=== PATIENT | male | born 1995 | race Two or more races ===

== ENCOUNTER 2024-02-11 12:42 | Inpatient (IN) ==
[2024-02-11 13:50] LABS: Basophils # (auto) 0.02 K/uL (0.00-0.20); Basophils % (auto) 0.3 %; Eosinophils # (auto) 0.03 K/uL (0.00-0.50); Eosinophils % (auto) 0.5 %; Hematocrit (blood only) 41.4 % (42.0-52.0); Hemoglobin 13.8 g/dl (14.0-18.0); Immature Granulocytes # (auto) 0.06 K/uL (0.01-0.20); Lymphocytes # (auto) 1.54 K/uL (1.20-3.40); Lymphocytes % (auto) 26.4 %; Mean Corpuscular Hemoglobin 32.1 pg (25.0-34.0); Mean Corpuscular Hgb Conc 33.3 g/dL (32.0-36.0); Mean Corpuscular Volume 96.3 fL (80.0-100.0); Mean Platelet Volume 9.8 fL (9.4-12.4); Monocytes % (auto) 13.7 %; Neutrophils # (auto) 3.38 K/uL (1.40-6.50); Neutrophils % (auto) 58.1 %; Platelet Count 402 K/uL (130-400); RDW Coefficient of Variation 15.2 % (11.5-14.5); RDW Standard Deviation 53.3 fL (36.4-46.3); White Blood Count 5.83 K/ul (4.8-10.8)
[2024-02-11 14:17] LABS: BUN Creatinine Ratio 22.4 (10-20); Calcium 9.8 mg/dl (8.6-10.3); Creatinine Clr Calc Pharmacy 98.9 ml/min; Est GFR (African American) 120.3 ml/min; Est GFR (Non-African American) 103.8 ml/min; Potassium 3.5 mmol/L (3.5-5.1)
[2024-02-11 14:22] LABS: Albumin Level 3.9 gm/dl (3.4-5.0); Bilirubin Direct 1.8 mg/dl (0-0.2); Bilirubin,Total 2.6 mg/dl (0.2-1.0); Total Protein 8.9 gm/dl (6.0-8.3)
[2024-02-11] MEDS: OPTIRAY 320 100ml IV ONE (15:21)
--- NOTE | 2024-02-11 15:41 | Ultrasound Report ---
US gallbladder CLINICAL HISTORY: RUQ abd pain; transaminitis COMPARISON STUDY: No previous studies for comparison. FINDINGS: There is no biliary ductal dilatation. There are no hepatic lesions. Multiple gallstones wi thin the gallbladder are present. Gallbladder wall is mildly thickened. The gallbladder is contracted . There is no sonographic Macario sign. Pancreas is obscured by overlying bowel gas. There is no right hydronephrosis. IMPRESSION: 1. Cholelithiasis. No sonographic evidence for acute cholecystitis. 2. No biliary ductal dilatation. ACT 112: Negative or not required by law. Electronically signed by: Cy Stevenson M.D. 02/11/2024 3:40 PM
--- NOTE | 2024-02-11 15:44 | CT Scan Report ---
CT SCAN OF THE ABDOMEN AND PELVIS WITH IV CONTRAST CLINICAL HISTORY: Right upper quadrant abdominal pain. Elevated hepatic transaminases COMPARISON STUDY: Abdominal ultrasound performed the same day 02/11/2024. TECHNIQUE: Following the IV administration of 94 cc of Optiray 320, CT scan of the abdomen and pelvi s is performed from the lung bases to the proximal femora. Images are reviewed in the axial, sagittal , and coronal planes. IV contrast was administered without complication. A dose lowering technique wa s utilized adhering to the principles of ALARA. CT DOSE: 569.12 mGy.cm FINDINGS: Lung bases: The heart is normal in size and without pericardial effusion. Tree in bud consolidation i s seen in the right middle lobe. The lung bases are otherwise clear. Liver: The contrast-enhanced liver is normal in size, contour, and attenuation. There is no intrahepa tic biliary ductal dilatation. The hepatic veins and portal veins are patent. Gallbladder: There are numerous calcified gallstones within a contracted gallbladder. There is no CT evidence of acute cholecystitis. Spleen: Normal in size and attenuation. Pancreas: Unremarkable. Adrenal glands: Unremarkable. Kidneys: The contrast enhanced kidneys are normal in size and without hydronephrosis. The kidneys enh ance symmetrically. An 8 mm cyst is seen in the right upper pole. Abdominal vasculature: The abdominal aorta is normal in course and caliber. Bowel: There is vehs-ip-excitytp colonic fecal retention. No bowel obstruction is seen. The appendix is not identified and reported surgically absent. Peritoneum: There is no intraperitoneal free air or abdominal ascites. There is a small fat-containin g umbilical hernia. Lymphadenopathy: There are prominent retroperitoneal lymph nodes. Aortocaval node nodes as seen on im ages #114 and #122 measure up to 9 mm in short axis. No additional suspicious lymph nodes are identif ied in the abdomen or pelvis. Pelvic viscera: The bladder, prostate, and seminal vesicles are normal as visualized. Skeletal structures: No lytic or blastic lesions are seen. IMPRESSION: 1. There is tree-in-bud airspace consolidation in the right middle lobe, likely an infectious/inflamm atory basis. Correlate clinically. 2. Cholelithiasis without CT evidence of acute cholecystitis. 3. There are prominent nonspecific retroperitoneal lymph nodes. Although not highly suspicious, given the location a testicular neoplasm should be excluded. Consider a scrotal ultrasound for further leah luation. 4. Additional findings as above. ACT 112: Negative or not required by law. Electronically signed by: Jacques Lunsford M.D. 02/11/2024 3:42 PM
[2024-02-11 15:55] LABS: Appearance Urine Clear (Clear); Bilirubin Urine 1+ (Negative); Blood Urine Negative (Negative); Color Urine Dark Yellow; Glucose Urine UA Negative (Negative); Ketones Urine Trace (Negative); Leukocyte Esterase Urine Negative (Negative); Nitrite Urine Negative (Negative); Protein Urine Negative (Negative); Specific Gravity Urine > 1.045 (1.000-1.030); Urobilinogen Urine Negative (Negative); pH Urine 5.5 (4.5-7.5)
--- NOTE | 2024-02-11 16:05 | Emergency Department Note ---
Impression & Plan Transaminitis ED Provider Note HISTORY OF PRESENT ILLNESS: Patient is a 28-year-old male presenting with transaminitis. Patient reports that he was getting basic laboratory workup done for an appointment to start a preventative medication (PREP) at [facility] when he was called today that his liver function tests were elevated. He had repeat testing done today again that showed his liver function tests were on the rise and was referred to the emergency department. Patient denies any recent changes in medications. He denies any abdominal pain, nausea or vomiting. Denies any recent fevers. Denies any headache or changes in vision. He denies any chest pain or shortness of breath. 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 He reports he has been in remission ever since. He follows with an oncologist in [place], but is currently in [place] for school. He states that his oncologist referred him to the emergency department for further testing. Patient does report that he tested positive for COVID 6 days ago. ROS: as above PHYSICAL EXAM: Constitutional: Patient appears in no acute distress. HENT: Head: Normocephalic and atraumatic. Eyes: EOMI, PERRL Mouth/Throat: Mucous membranes moist. Neck: Trachea midline. Neck supple. Cardiovascular: RRR, No murmurs, rubs or gallops. Intact distal pulses. Pulmonary/Chest: No respiratory distress. Breath sounds clear and equal bilaterally. No wheezes or rales. Abdominal: Abdomen soft, no tenderness, rebound or guarding. Musculoskeletal: No edema, tenderness or deformity noted. Skin: Warm and dry. No rash, erythema, pallor or cyanosis Psychiatric: Appropriate mood and affect for situation. Neurological: Alert and keenly responsive. CN II-XII grossly intact, moving all extremities equally and fully. MDM: - Vitals signs stable. - History obtained via patient. History as above. - Chronic conditions affecting care: Leukemia - Differential diagnoses include, but are not limited to: Cholelithiasis; choledocholithiasis; acute cholecystitis; acute viral syndrome; - Order placed for continuous cardiac monitoring. At this time, monitor showed rate of 65 bpm with normal sinus rhythm, per my interpretation. - External medical records reviewed. - Laboratory workup interpreted by myself showed normal WBC; normal PT/INR; normal procalcitonin; stable electrolytes; elevated total bilirubin (2.6); transaminitis (AST 546; ALT 759); elevated alkaline phosphatas (379); normal CK; normal lipase; negative alcohol; negative acetaminophen level; negative Monospot - Negative Lyme/anaplasma/babesia - Acute hepatitis panel ordered. - UA negative for infection. Noted to have trace ketonuria and positive urine bilirubin. - US gallbladder showed cholelithiasis but no sonographic evidence of acute cholecystitis. No biliary ductal dilatation. - CT abdomen/pelvis with IV contrast showed cholelithiasis without acute cholecystitis. Noted to have prominent nonspecific retroperitoneal lymph nodes. - Did discuss patient's case with his oncologist at [facility], Dr Lisa Stevenson, at 16:05. He reports that the patient has a history of bone marrow transplant and reports that one of the complications from that is potentially adhye-tzqrww-egho disease of the liver. He request that we rule out hepatitis and any other infectious etiology. He reports that once infection has been ruled out, the patient should be started on steroids. - Discussion was had with case planner about patient's case and need for admission - Hospitalist, Dr. Andrews, consulted for admission - [facility] ASSESSMENT AND PLAN: Diagnosis: Transaminitis Plan: admit Past Med/Surg History Problem List (Updated 02/11/24 @ 17:38 by Tru Piedra PA-C) COVID History of acute lymphoblastic leukemia (ALL) Transaminitis (Acute) Social History Smoking Status: Current some day smoker Tobacco Type: Cigarettes Preferred Language: Cuban Feels Safe at Home: Yes Allergies Allergies Allergy/AdvReac Type Severity Reaction Status Date / Time No Known Allergies Allergy Unverified 02/11/24 17:03 Home Meds Home Medications Medication Instructions Recorded Confirmed Vitamin B6 50 mcg PO DAILY 02/11/24 02/11/24 acyclovir 1 tab PO BID 02/11/24 02/11/24 deferasirox 360 mg tablet 350 mg PO UD 02/11/24 02/11/24 dextroamphetamine-amphetamine 15 15 mg PO .Q AM AND BEFORE 2PM 02/11/24 02/11/24 mg tablet (Adderall) isoniazid 300 mg tablet 300 mg PO DAILY 02/11/24 02/11/24 multivitamin 1 tab PO QAM 02/11/24 02/11/24 penicillin V potassium 250 mg 250 mg PO BID 02/11/24 02/11/24 tablet Results & Data (ED) Vital Signs Vital Signs - 24 hr 02/11/24 12:54 02/11/24 16:59 Temperature 36.6 C Temperature Source Temporal Artery Scan Pulse Rate 87 Pulse Rate [Apical] 66 Respiratory Rate 20 12 Respiratory Effort / Characteristics Non-Labored Spontaneous Respiratory Depth Normal Respiratory Pattern Regular Blood Pressure 105/73 Blood Pressure [Right Arm] 116/67 Blood Pressure Mean 83 Blood Pressure Mean [Right Arm] 83 Blood Pressure Position Sitting Pulse Oximetry 96 99 Oxygen Delivery Method Room Air Room Air Sepsis Recent Fever Within 48 Hours No Sepsis New/Unexplained Change in Mental Status No Sepsis Action Taken by Nursing No Action Required Laboratory Data 02/11/24 13:08 02/11/24 13:08 Lab Results 02/11/24 02/11/24 02/11/24 Range/Units 13:08 13:48 15:35 WBC 5.83 (4.8-10.8) K/ul RBC 4.30 L (4.70-6.10) M/uL Hgb 13.8 L (14.0-18.0) g/dl Hct 41.4 L (42.0-52.0) % MCV 96.3 (80.0-100.0) fL MCH 32.1 (25.0-34.0) pg MCHC 33.3 (32.0-36.0) g/dL RDW Std Deviation 53.3 H (36.4-46.3) fL RDW Coeff of Apple 15.2 H (11.5-14.5) % Plt Count 402 H (130-400) K/uL MPV 9.8 (9.4-12.4) fL Immature Gran % (Auto) 1.0 % Neut % (Auto) 58.1 % Lymph % (Auto) 26.4 % [place] % (Auto) 13.7 % Eos % (Auto) 0.5 % Baso % (Auto) 0.3 % Neut # (Auto) 3.38 (1.40-6.50) K/uL Lymph # (Auto) 1.54 (1.20-3.40) K/uL [place] # (Auto) 0.80 H (0.11-0.59) K/uL Eos # (Auto) 0.03 (0.00-0.50) K/uL Baso # (Auto) 0.02 (0.00-0.20) K/uL Immature Gran # (Auto) 0.06 (0.01-0.20) K/uL PT (9.0-12.0) Seconds INR (0.9-1.1) Sodium 137 (136-145) mmol/L Potassium 3.5 (3.5-5.1) mmol/L Chloride 100 (98-107) mmol/L Carbon Dioxide 30 (21-32) mmol/L Anion Gap 7 (3-11) BUN 22 (6-23) mg/dl Creatinine 0.98 (0.6-1.4) mg/dl Est Cr Clr Drug Dosing 98.9 ml/min Est GFR ( Amer) 120.3 ml/min Est GFR (Non-Af Amer) 103.8 ml/min BUN/Creatinine Ratio 22.4 H (10-20) Glucose 111 H (70-99(Fasting)) mg/dl Calcium 9.8 (8.6-10.3) mg/dl Total Bilirubin 2.6 H (0.2-1.0) mg/dl Direct Bilirubin 1.8 H (0-0.2) mg/dl AST 546 H (13-39) U/L ALT 759 H (7-52) U/L Alkaline Phosphatase 379 H (34-104) U/L Total Creatine Kinase 57 (30-223) U/L Total Protein 8.9 H (6.0-8.3) gm/dl Albumin 3.9 (3.4-5.0) gm/dl Lipase 35 (11-82) U/L Procalcitonin (0-0.5) ng/ml Urine Color Dark Yellow Urine Appearance Clear (Clear) Urine pH 5.5 (4.5-7.5) Ur Specific [place] > 1.045 H (1.000-1.030) Urine Protein Negative (Negative) Urine Glucose (UA) Negative (Negative) Urine Ketones Trace H (Negative) Urine Blood Negative (Negative) Urine Nitrite Negative (Negative) Urine Bilirubin 1+ H (Negative) Urine Urobilinogen Negative (Negative) Ur Leukocyte Esterase Negative (Negative) Acetaminophen < 3 L (10-30) ug/ml Ethyl Alcohol mg/dL (<10.0) mg/dl Anaplasma Smear See Comment Babesia Smear See Comment Lyme Disease Screen Negative (Negative) Monoscreen Negative (Negative) SARS-CoV-2, RNA, NAAT (NEGATIVE) 02/11/24 02/11/24 02/11/24 Range/Units 15:40 16:29 17:18 WBC (4.8-10.8) K/ul RBC (4.70-6.10) M/uL Hgb (14.0-18.0) g/dl Hct (42.0-52.0) % MCV (80.0-100.0) fL MCH (25.0-34.0) pg MCHC (32.0-36.0) g/dL RDW Std Deviation (36.4-46.3) fL RDW Coeff of Apple (11.5-14.5) % Plt Count (130-400) K/uL MPV (9.4-12.4) fL Immature Gran % (Auto) % Neut % (Auto) % Lymph % (Auto) % [place] % (Auto) % Eos % (Auto) % Baso % (Auto) % Neut # (Auto) (1.40-6.50) K/uL Lymph # (Auto) (1.20-3.40) K/uL [place] # (Auto) (0.11-0.59) K/uL Eos # (Auto) (0.00-0.50) K/uL Baso # (Auto) (0.00-0.20) K/uL Immature Gran # (Auto) (0.01-0.20) K/uL PT 10.9 (9.0-12.0) Seconds INR 1.0 (0.9-1.1) Sodium (136-145) mmol/L Potassium (3.5-5.1) mmol/L Chloride (98-107) mmol/L Carbon Dioxide (21-32) mmol/L Anion Gap (3-11) BUN (6-23) mg/dl Creatinine (0.6-1.4) mg/dl Est Cr Clr Drug Dosing ml/min Est GFR ( Amer) ml/min Est GFR (Non-Af Amer) ml/min BUN/Creatinine Ratio (10-20) Glucose (70-99(Fasting)) mg/dl Calcium (8.6-10.3) mg/dl Total Bilirubin (0.2-1.0) mg/dl Direct Bilirubin (0-0.2) mg/dl AST (13-39) U/L ALT (7-52) U/L Alkaline Phosphatase (34-104) U/L Total Creatine Kinase (30-223) U/L Total Protein (6.0-8.3) gm/dl Albumin (3.4-5.0) gm/dl Lipase (11-82) U/L Procalcitonin 0.21 (0-0.5) ng/ml Urine Color Urine Appearance (Clear) Urine pH (4.5-7.5) Ur Specific [place] (1.000-1.030) Urine Protein (Negative) Urine Glucose (UA) (Negative) Urine Ketones (Negative) Urine Blood (Negative) Urine Nitrite (Negative) Urine Bilirubin (Negative) Urine Urobilinogen (Negative) Ur Leukocyte Esterase (Negative) Acetaminophen (10-30) ug/ml Ethyl Alcohol mg/dL < 10.0 (<10.0) mg/dl Anaplasma Smear Babesia Smear Lyme Disease Screen (Negative) Monoscreen (Negative) SARS-CoV-2, RNA, NAAT POSITIVE A (NEGATIVE) Administered Medications Discontinued Medications Ioversol (Optiray 320 100ml) 94 ml IV ONCE ONE Stop: 02/11/24 15:22 Last Admin: 02/11/24 15:21 Dose: 94 ml Documented By: MAYELA Imaging Data Radiologist's Impression: Gallbladder Ultrasound 02/11/24 13:55 US gallbladder CLINICAL HISTORY: RUQ abd pain; transaminitis COMPARISON STUDY: No previous studies for comparison. FINDINGS: There is no biliary ductal dilatation. There are no hepatic lesions. Multiple gallstones within the gallbladder are present. Gallbladder wall is mildly thickened. The gallbladder is contracted. There is no sonographic Macario sign. Pancreas is obscured by overlying bowel gas. There is no right hydronephrosis. IMPRESSION: 1. Cholelithiasis. No sonographic evidence for acute cholecystitis. 2. No biliary ductal dilatation. ACT 112: Negative or not required by law. Electronically signed by: Cy Stevenson M.D. 02/11/2024 3:40 PM Abdomen/Pelvis CT 02/11/24 14:55 CT SCAN OF THE ABDOMEN AND PELVIS WITH IV CONTRAST CLINICAL HISTORY: Right upper quadrant abdominal pain. Elevated hepatic transaminases COMPARISON STUDY: Abdominal ultrasound performed the same day 02/11/2024. TECHNIQUE: Following the IV administration of 94 cc of Optiray 320, CT scan of the abdomen and pelvis is performed from the lung bases to the proximal femora. Images are reviewed in the axial, sagittal, and coronal planes. IV contrast was administered without complication. A dose lowering technique was utilized adhering to the principles of ALARA. CT DOSE: 569.12 mGy.cm FINDINGS: Lung bases: The heart is normal in size and without pericardial effusion. Tree in bud consolidation is seen in the right middle lobe. The lung bases are otherwise clear. Liver: The contrast-enhanced liver is normal in size, contour, and attenuation. There is no intrahepatic biliary ductal dilatation. The hepatic veins and portal veins are patent. Gallbladder: There are numerous calcified gallstones within a contracted gallbladder. There is no CT evidence of acute cholecystitis. Spleen: Normal in size and attenuation. Pancreas: Unremarkable. Adrenal glands: Unremarkable. Kidneys: The contrast enhanced kidneys are normal in size and without hydronephrosis. The kidneys enhance symmetrically. An 8 mm cyst is seen in the right upper pole. Abdominal vasculature: The abdominal aorta is normal in course and caliber. Bowel: There is haoq-zf-zazuqmfk colonic fecal retention. No bowel obstruction is seen. The appendix is not identified and reported surgically absent. Peritoneum: There is no intraperitoneal free air or abdominal ascites. There is a small fat-containing umbilical hernia. Lymphadenopathy: There are prominent retroperitoneal lymph nodes. Aortocaval node nodes as seen on images #114 and #122 measure up to 9 mm in short axis. No additional suspicious lymph nodes are identified in the abdomen or pelvis. Pelvic viscera: The bladder, prostate, and seminal vesicles are normal as visualized. Skeletal structures: No lytic or blastic lesions are seen. IMPRESSION: 1. There is tree-in-bud airspace consolidation in the right middle lobe, likely an infectious/inflammatory basis. Correlate clinically. 2. Cholelithiasis without CT evidence of acute cholecystitis. 3. There are prominent nonspecific retroperitoneal lymph nodes. Although not highly suspicious, given the location a testicular neoplasm should be excluded. Consider a scrotal ultrasound for further evaluation. 4. Additional findings as above. ACT 112: Negative or not required by law. Electronically signed by: Jacques Lunsford M.D. 02/11/2024 3:42 PM Discharge Plan Visit Data Chief Complaint: Abnormal Labs/Diagnostic Testing Stated Complaint: ABN LABS, REF BY [facility] ED Provider: Xi Sahni Discharge Problem: Transaminitis Forms Stand Alone Forms: My [facility] Prescriptions Prescriptions: No Action multivitamin [Multi-Vitamin] Tablet 1 tab PO QAM Rx Instructions: gummies penicillin V potassium 250 mg Tablet 250 mg PO BID isoniazid 300 mg Tablet 300 mg PO DAILY dextroamphetamine-amphetamine [Adderall] 15 mg Tablet 15 mg PO .Q AM AND BEFORE 2PM Rx Instructions: administer doses at least 4-6 hours apart deferasirox 360 mg Tablet 350 mg PO UD Rx Instructions: Per pt his dose is 350 mg and he takes 700 mg (350 x2) in the mornings take with water/beverage on empty stomach/w light meal (<7 % fat/<=250 any); do not take within 1 hr of an aluminum-containing antacid Vitamin B6 50 mcg PO DAILY acyclovir 1 tab PO BID Rx Instructions: dosage wasn't showing up for patient and he was unsure. Referrals [facility] [Primary [facility] Provider[facility] -
--- NOTE | 2024-02-11 16:25 | History & Physical Report ---
Date of Service February 11, 2024 Assessment & Plan (1) Transaminitis: Plan: Sent in by [facility] for elevated LFTs on 02/10 Lipase WNL No leukocytosis; afebrile Gallbladder ultrasound without signs of acute cholecystitis A/P CT did not reveal acute cholecystitis, but noted prominent nonspecific lymph nodes; testicular neoplasm could not be excluded Scrotal U/S ordered, pending ETOH WNL Acetaminophen level WNL Procalcitonin WNL Monospot negative Hepatitis panel ordered, pending Tickborne panel ordered, pending Suspect this is multifactorial: Combination of recent COVID infection leading to Tylenol use, recent alcohol use on 02/08 (5 beers), and home medications (which includes isoniazid; ?enhancement of acetaminophen toxicity) Patient reports he was on isoniazid for "something to do with his lung" Last Tylenol was taken yesterday A.m. 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 Lisa Stevenson) In remission x 3 years ? Transaminitis as a side effect of transplant; [id number] If this were the case, could trial steroids Continue Pen VK 500mg daily Continue acyclovir 400 mg BID Hold Isoniazid (3) COVID: Plan: Patient reports he recently tested positive for COVID last week on 02/04 COVID (+) on arrival Isolation precautions for now Supportive care (4) Insomnia: Plan: Hold gabapentin Melatonin as needed Plan Disposition: Admit to [facility] Full code Regular diet VTE PPx: Low risk, encourage ambulation History of Present Illness Chief Complaint: Abnormal liver function tests on outpatient labs Primary Care Provider: [facility] Edi is a pleasant 28-year-old male with PMH of B-cell ALL, secondary hemochromatosis, insomnia, neutropenic fever, CMV gastritis, and recurrent infections (group B strep bacteremia, human metapneumovirus). He presented on 02/10 after having blood work obtained at [facility] that showed elevated liver enzyme levels. 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 Follows with [facility] hematology/oncology. Patient does report abdominal bloating, headache, and dry cough, but no other symptoms. He recently moved from [place] to attend [employer] for a PhD in philosophy. He does report that he tested positive for COVID last week on 02/04 and has been trying to quarantine. While his symptoms have largely subsided, he reports he was taking Tylenol and cough syrup over the past week. He would take 2 Tylenol 500 mg in the morning, as well as cough syrup at night (and occasionally an additional Tylenol tablet at night for body aches). He also reports that he was drinking alcohol on 02/08; he had about 5 beers at a [employer]. No history of acute hepatitis. He denies history of heavy alcohol use. His body aches and most of his COVID symptoms have resolved, but he does have ongoing dry cough, headache, and abdominal bloating. No recent change in diet. Occasional tobacco cigarette smoker (socially). Patient did not take his regular morning medications today; he does take isoniazid, but is unsure why he takes it (believes it was for a lung condition; he does not believe it was for history of DVT). Patient's vitals are stable at time of admission. ED course: ROS: Patient endorses intermittent headache, dry cough, and abdominal bloating. Patient denies fever, chills, night sweats, dizziness, lightheadedness, joint pain, chest pain, chest palpitations, SOB, cough, pleuritic CP, abdominal pain, N/V/D, changes in urinary or bowel habits, melena, blood in the urine or stool, or numbness or tingling in the arms or legs. Allergies Allergy/AdvReac Type Severity Reaction Status Date / Time No Known Allergies Allergy Unverified 02/11/24 17:03 Home Medications Medication Instructions Recorded Confirmed Type Vitamin B6 50 mcg PO DAILY 02/11/24 02/11/24 History acyclovir 1 tab PO BID 02/11/24 02/11/24 History deferasirox 360 mg tablet 350 mg PO UD 02/11/24 02/11/24 History dextroamphetamine-amphetamine 15 15 mg PO .Q AM AND BEFORE 2PM 02/11/24 02/11/24 History mg tablet (Adderall) isoniazid 300 mg tablet 300 mg PO DAILY 02/11/24 02/11/24 History multivitamin 1 tab PO QAM 02/11/24 02/11/24 History penicillin V potassium 250 mg 250 mg PO BID 02/11/24 02/11/24 History tablet Past Med/Surg History Problem List (Updated 02/11/24 @ 18:13 by Tru Piedra PA-C) Insomnia COVID History of acute lymphoblastic leukemia (ALL) Transaminitis (Acute) Social History Smoking Status: Current some day smoker Tobacco Type: Cigarettes Preferred Language: Turkmen Feels Safe at Home: Yes Review of Systems Review of Systems: See HPI above Physical Exam Physical Exam: General: no acute distress; pleasant affect; anxious; non-toxic appearing; well- nourished; cooperative; SpO2 96% on RA HEENT: normocephalic, atraumatic; no scleral icterus; PERRLA w/ EOMs intact; vision and hearing grossly intact Neck: supple; no lymphadenopathy; trachea midline Skin: warm, dry without signs of tenting; no cyanosis; no rashes, bruising, lesions, or erythema noted CV: chest wall NTP; RRR; S1/S2 normal; no murmurs/rubs/gallops; pulses intact and symmetric at radial, DP, and PT Lungs: no acute respiratory distress; symmetrical chest wall expansion; clear breath sounds across all lung argueta w/o adventitious sounds; no wheezing ABD: Soft, NTP; BS present; no rebound/guarding; no distention; no rashes or bruising on the abdomen or flanks bilaterally MSK: no tics or fasciculations; no edema noted in the LEs b/l, nonerythematous Neuro: A&Ox3; normal mood and affect; fluent speech; no focal deficits; sensation grossly intact in the LEs b/l Results & Data Results & Data Vital Signs (Past 12 Hours) Vital Signs Temp Pulse Resp BP Pulse Ox O2 Del Method 02/11/24 12:54 36.6 C 87 20 105/73 96 Room Air Laboratory Results Abnormal lab results 02/11/24 02/11/24 02/11/24 Range/Units 13:08 13:48 15:35 RBC 4.30 L (4.70-6.10) M/uL Hgb 13.8 L (14.0-18.0) g/dl Hct 41.4 L (42.0-52.0) % RDW Std Deviation 53.3 H (36.4-46.3) fL RDW Coeff of Apple 15.2 H (11.5-14.5) % Plt Count 402 H (130-400) K/uL [place] # (Auto) 0.80 H (0.11-0.59) K/uL BUN/Creatinine Ratio 22.4 H (10-20) Glucose 111 H (70-99(Fasting)) mg/dl Total Bilirubin 2.6 H (0.2-1.0) mg/dl Direct Bilirubin 1.8 H (0-0.2) mg/dl AST 546 H (13-39) U/L ALT 759 H (7-52) U/L Alkaline Phosphatase 379 H (34-104) U/L Total Protein 8.9 H (6.0-8.3) gm/dl Ur Specific [place] > 1.045 H (1.000-1.030) Urine Ketones Trace H (Negative) Urine Bilirubin 1+ H (Negative) Acetaminophen < 3 L (10-30) ug/ml Diagnostic Findings Gallbladder Ultrasound 02/11/24 13:55 US gallbladder CLINICAL HISTORY: RUQ abd pain; transaminitis COMPARISON STUDY: No previous studies for comparison. FINDINGS: There is no biliary ductal dilatation. There are no hepatic lesions. Multiple gallstones within the gallbladder are present. Gallbladder wall is mildly thickened. The gallbladder is contracted. There is no sonographic Macario sign. Pancreas is obscured by overlying bowel gas. There is no right hydronephrosis. IMPRESSION: 1. Cholelithiasis. No sonographic evidence for acute cholecystitis. 2. No biliary ductal dilatation. ACT 112: Negative or not required by law. Electronically signed by: Cy Stevenson M.D. 02/11/2024 3:40 PM Abdomen/Pelvis CT 02/11/24 14:55 CT SCAN OF THE ABDOMEN AND PELVIS WITH IV CONTRAST CLINICAL HISTORY: Right upper quadrant abdominal pain. Elevated hepatic transaminases COMPARISON STUDY: Abdominal ultrasound performed the same day 02/11/2024. TECHNIQUE: Following the IV administration of 94 cc of Optiray 320, CT scan of the abdomen and pelvis is performed from the lung bases to the proximal femora. Images are reviewed in the axial, sagittal, and coronal planes. IV contrast was administered without complication. A dose lowering technique was utilized adhering to the principles of ALARA. CT DOSE: 569.12 mGy.cm FINDINGS: Lung bases: The heart is normal in size and without pericardial effusion. Tree in bud consolidation is seen in the right middle lobe. The lung bases are otherwise clear. Liver: The contrast-enhanced liver is normal in size, contour, and attenuation. There is no intrahepatic biliary ductal dilatation. The hepatic veins and portal veins are patent. Gallbladder: There are numerous calcified gallstones within a contracted gallbladder. There is no CT evidence of acute cholecystitis. Spleen: Normal in size and attenuation. Pancreas: Unremarkable. Adrenal glands: Unremarkable. Kidneys: The contrast enhanced kidneys are normal in size and without hydronephrosis. The kidneys enhance symmetrically. An 8 mm cyst is seen in the right upper pole. Abdominal vasculature: The abdominal aorta is normal in course and caliber. Bowel: There is aczc-lg-jqeuranl colonic fecal retention. No bowel obstruction is seen. The appendix is not identified and reported surgically absent. Peritoneum: There is no intraperitoneal free air or abdominal ascites. There is a small fat-containing umbilical hernia. Lymphadenopathy: There are prominent retroperitoneal lymph nodes. Aortocaval node nodes as seen on images #114 and #122 measure up to 9 mm in short axis. No additional suspicious lymph nodes are identified in the abdomen or pelvis. Pelvic viscera: The bladder, prostate, and seminal vesicles are normal as visualized. Skeletal structures: No lytic or blastic lesions are seen. IMPRESSION: 1. There is tree-in-bud airspace consolidation in the right middle lobe, likely an infectious/inflammatory basis. Correlate clinically. 2. Cholelithiasis without CT evidence of acute cholecystitis. 3. There are prominent nonspecific retroperitoneal lymph nodes. Although not highly suspicious, given the location a testicular neoplasm should be excluded. Consider a scrotal ultrasound for further evaluation. 4. Additional findings as above. ACT 112: Negative or not required by law. Electronically signed by: Jacques Lunsford M.D. 02/11/2024 3:42 PM Code Status & VTE Plan Code Status Full code VTE Prophylaxis Plan VTE Prophylaxis will be ordered: No Supervising Physician Co-Signing Physician Notes Patient seen and examined, chart reviewed, case discussed with Tru Piedra PA-C and I agree with the assessment and plan as above except as otherwise noted Labs and images reviewed Edi is a 28yo M with PMHx of ALL who presented after outpatient blood work s howed transaminitis. Hx of bone marrow transplant COVID+ Feb 04. Has been taking tylenol 2-3x tablets per day for the last 6 days. 500 mg tablets around every 6-8 hours last dose was yesterday evening Drank 5 beers at a mixer this past week, otherwise denies hx of etoh use. This was the before his symptoms began, he did not drink any alcohol at the same time he is using Tylenol COVID symptoms have resolved On acyclovir, isoniazid, PCN, gabpentin chronically Does have history of AL L s/p bone marrow allograft at [facility] Has had some complicated infections in the past. Denies history of tuberculosis, but is also not sure why he is on isoniazid. Records are pending. Did discuss with patient's oncologist Dr. Stevenson at [phone]. I level of suspicion for xkffy-lwohbi-majn which can be induced by potential priming of COVID infection. Agreed with hepatitis panel, and if negative then starting on prednisone 60 mg daily for at least 1 week or until transaminases are improving. Did review CT with retroperitoneal lymphadenopathy and testicular mass, highly concerning for recurrent malignancy. Is not clear on the details at time of call on his isoniazid, but will obtain records from [facility] and fax these to us at the ER office. Recommending holding at this time given transaminitis. Appreciate recommendations Scrotal ultrasound is pending, and may need to progress to testicular biopsy for further evaluation. At bedside lungs are clear. Patient is nondistressed. Abdomen is soft and nontender. No lower extremity edema. Heart rate is regular. Transaminitis Patient admitted for transaminitis, and was recommended for inpatient evaluation by his OSH oncologist due to history of bone marrow transplant due to risk of other infections and jfdjx-qasfcq-ouae. Recommended if no infectious etiology were identified and if there is no improvement that steroids be pursued Patient recently had COVID. In addition to this he has been taking Tylenol, may have been potentiated while also on isoniazid. CTA/P does not show evidence of obstruction, cholelithiasis are noted. Some right lobe consolidation is noted. Acetaminophen level is negative at time of admission. Last dose was 1 day ago. ETOH is negative at time of admission. NAC is not indicated Trend LFTs daily, hold isoniazid, if hepatitis panel is negative start prednisone 60 mg daily COVID - Dx by home test 1 week ago. Patient has not had fevers or chills, his respiratory symptoms have completely resolved from COVID, does not have a leukocytosis. CT with some right lung findings, will monitor. His procalcitonin is pending. Patient has been put on Bactrim 3 times daily at the rest of his oncology team and will continue his penicillin V. Currently not hypoxic, afebrile. Isolation precautions Scrotal mass, retroperitoneal lymphadenopathy Concerning her recurrent malignancy. Scrotal ultrasound pending Agree with above PG Care Time/CCT Total # of Minutes Spent Total Time Spent with Patient: Total time spent is greater than 50% in coordination of care (as documented) at patient's floor/unit and/or counseling patient: [place] [address] INT INP/OBS CARE 3/75MIN Patient Type New Medical Decision Making High Complexity Diagnoses Transaminitis R74.01 History of acute lymphoblastic leukemia (ALL) Z85.6 COVID U07.1 Insomnia G47.00
[2024-02-11 17:24] LABS: Prothrombin Time 10.9 Seconds (9.0-12.0)
[2024-02-11 17:44] LABS: Hep B Surface Ag with confirm Negative (Negative)
[2024-02-11 17:49] LABS: Hep C Ab Rflx HepCQuant RNA Negative (Negative)
[2024-02-11] MEDS: PENICILLIN V POTASSIUM 250 MG TAB PO SCH (21:04)
[2024-02-11] MEDS: ACYCLOVIR 400 MG TAB PO SCH (21:04)
--- NOTE | 2024-02-11 23:44 | Ultrasound Report ---
Exam(s): US SCROTAL EXAM: US Scrotum CLINICAL HISTORY: Reason for exam: Retroperitoneal lymph nodes; r/o neoplasm. TECHNIQUE: Real-time ultrasound of the scrotum with color Doppler and image documentation. COMPARISON: CT scan from February 11, 2024 FINDINGS: Right testicle: The right testicle measures 2.4 x 3.9 x 1.6 cm. No torsion. Left testicle: The left testicle measures 2.3 x 3.6 x 1.7 cm. No torsion. Epididymides: The right epididymal head measures 7 x 5 mm. The left epididymal head measures 9 x 5 mm. Scrotum: There is scrotal skin thickening measuring 10 mm diffusely. No hernia or varicocele. IMPRESSION: Scrotal skin thickening is nonspecific but could represent cellulitis. Normal appearance of the testicles and epididymides. No mass, torsion, hernia, or varicocele. Electronically signed by: Vikram Gotti MD 02/11/24 23:43 PM
[2024-02-12] MEDS: MELATONIN 3 MG TAB PO PRN (01:23)
[2024-02-12 06:17] LABS: Basophils # (auto) 0.01 K/uL (0.00-0.20); Basophils % (auto) 0.2 %; Eosinophils # (auto) 0.04 K/uL (0.00-0.50); Eosinophils % (auto) 0.8 %; Hematocrit (blood only) 36.7 % (42.0-52.0); Hemoglobin 12.7 g/dl (14.0-18.0); Immature Granulocytes # (auto) 0.03 K/uL (0.01-0.20); Immature Granulocytes % (auto) 0.6 %; Lymphocytes # (auto) 1.41 K/uL (1.20-3.40); Mean Corpuscular Hemoglobin 32.3 pg (25.0-34.0); Mean Corpuscular Hgb Conc 34.6 g/dL (32.0-36.0); Mean Corpuscular Volume 93.4 fL (80.0-100.0); Mean Platelet Volume 9.8 fL (9.4-12.4); Monocytes # (auto) 0.91 K/uL (0.11-0.59); Monocytes % (auto) 18.1 %; Neutrophils # (auto) 2.64 K/uL (1.40-6.50); Neutrophils % (auto) 52.3 %; Platelet Count 346 K/uL (130-400); RDW Coefficient of Variation 15.1 % (11.5-14.5); RDW Standard Deviation 52.4 fL (36.4-46.3); Red Blood Count 3.93 M/uL (4.70-6.10); White Blood Count 5.04 K/ul (4.8-10.8)
[2024-02-12 06:31] LABS: BUN Creatinine Ratio 23.6 (10-20); Calcium 9.1 mg/dl (8.6-10.3); Creatinine Clr Calc Pharmacy 110.5 ml/min; Est GFR (African American) 133.9 ml/min; Est GFR (Non-African American) 115.5 ml/min; Potassium 3.7 mmol/L (3.5-5.1)
[2024-02-12 07:26] LABS: Albumin Globulin Ratio 0.9 (0.9-2); Albumin Level 3.5 gm/dl (3.4-5.0); Globulin 4.1 gm/dl (2.5-4.0); Total Protein 7.6 gm/dl (6.0-8.3)
[2024-02-12] MEDS ORDERED: DEFERASIROX 360 MG PO SCH (09:00)
[2024-02-12] MEDS: OPTIRAY 320 100ml IV ONE (15:10)
--- NOTE | 2024-02-12 15:24 | CT Scan Report ---
CT OF THE CHEST WITH IV CONTRAST CLINICAL HISTORY: Lung consolidation on CT AP COMPARISON STUDY: CT of the abdomen and pelvis February 11, 2024. TECHNIQUE: Following IV administration of 90 mL of Optiray, helical axial images of the chest were o btained. Sagittal and coronal reconstructions were viewed as well as maximal intensity projections o n an independent 3-D workstation. Automated exposure control was utilized for the study. A dose low ering technique was utilized adhering to the principles of ALARA. CT DOSE: 517.15 mGy.cm FINDINGS: No enlarged axillary, mediastinal or hilar lymph nodes are present. The size of the heart is normal. There is no pericardial effusion. No pneumothorax or pleural effusion is present. The cent ral airways are patent. There are a few clusters of tree-in-bud nodules within the right upper and ri ght middle lobes. No confluent consolidation is present. There is no cavitation. The left lung is rajiv ar. Nonspecific increased sclerosis within the visualized skeletal structures is noted. There are mul tiple Schmorl's nodes. Gallstones are again noted within the gallbladder. IMPRESSION: 1. Several clusters of tree-in-bud nodules within the right upper and right middle lobes. The finding s favor an infectious process such as bronchiolitis. A follow-up chest CT in 3 months to ensure resol ution is recommended. 2. Sclerosis within visualized skeletal structures. The etiology and clinical significance of this fi nding is uncertain. No well-defined lesions. 3. Cholelithiasis. ACT 112: Negative or not required by law. Electronically signed by: Cy Stevenson M.D. 02/12/2024 3:22 PM
[2024-02-12] MEDS: MAGNESIUM SULFATE / D5W 1 GM/100 ML BAG IV SCH (16:56)
--- NOTE | 2024-02-12 18:05 | Hospitalist Progress Note ---
Date of Service February 12, 2024 Assessment & Plan (1) Transaminitis: Plan: - Sent in by [facility] for elevated LFTs on 02/10 - Lipase WNL, no leukocytosis; afebrile - Gallbladder ultrasound without signs of acute cholecystitis - ETOH, Acetaminophen, Procalcitonin all wnl - Monospot negative - Hepatitis panel ordered, pending - Tickborne panel ordered: No evidence of intracytoplasmic neutrophilic inclusions or red blood cell inclusions - potentially due to combination of recent COVID infection leading to Tylenol use, recent alcohol use on 02/08 (5 beers), and isoniazid - Consulted GI, appreciate recommendations - CBC, CMP, PT/INR QAM (2) History of acute lymphoblastic leukemia (ALL): Plan: - Dx of B-Cell ALL at 11yo - 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 Lisa Stevenson) - In remission x 3 years - Transaminitis as a side effect of transplant, possible hhwwq-svohoo-vjge, can trial prednisone/Bactrim on Wednesday - Continue Pen VK 500mg daily and acyclovir 400 mg BID - Hold Isoniazid (3) Retroperitoneal lymphadenopathy: Plan: - A/P CT did not reveal acute cholecystitis, but noted prominent non-specific retroperitoneal lymph nodes; testicular neoplasm could not be excluded - Scrotal U/S: non-specific thickening of scrotal skin w/o mass, hernia, torsion, or varicocele - Past CT AP in Mar 2023 did not show similar lymphadenopathy - Consider biopsy of the lymph nodes vs repeat imaging in 1 month (4) Lung consolidation: Plan: - CT AP showed tree in bud consolidation of right middle lobe, favoring infectious/inflammatory process - CT chest August 2022: Diffuse bronchial wall thickening, cluster ground glass nodule left lower lobe, bronchocentric groundglass airspace opacities scattered in R. lung, potentially sequela of prior COVID +/- superimposed new atypical infection - CT chest ordered: Several tree in bud nodules within right middle and right upper lobes, favoring an infectious process like bronchiolitis - Recommendation: repeat imaging in 3 months to ensure resolution (5) COVID: Plan: - Patient reports he recently tested positive for COVID last week on 02/04 - COVID (+) on arrival - Isolation precautions for now - No cough, wheeze, SOB - Supportive care Plan Disposition: Admit to [facility] Full code Regular diet VTE PPx: Low risk, encourage ambulation Admission and Anticipated Discharge Date Admission Date: February 11, 2024 Supervising Physician Co-Signing Physician Notes I personally examined the patient and verified all parks points of history and exam, discussed case, and agree with decision making with Dr Monzon Feeling okay outside of leg crampshe notes that he gets these from time to time. No abdominal pain. No fevers. No shortness of breath. Vitals noted, in general he is awake and alert pleasant no distress. HEENT normocephalic atraumatic mucous membranes moist. Breathing unlabored no accessory muscle use good effort. Skin without rashes pallor or icterus. Palpable calf crampsattempted some gentle OMT to help alleviate which helped a little. Transaminitisis improving, is asymptomaticpossible that it is COVID plus alcohol plus Tylenolbut certainly concerning for something more immune mediated/kutew-lbbrlv-loyccpvpu that he has no symptoms, and the numbers are improvingcontinue to follow, ask gastroenterology for opinion. Retroperitoneal adenopathyconsider biopsy in the near future, testicular ultrasound reassuring. Continue to follow clinically otherwise tree-in-bud lung findingsgiven his immune compromise and risk for significant opportunistic pathogens, obtained chest CT to quantify further what was seen on abdominal slices of his CT abdomen pelvisunfortunately the findings were fairly minimal. May simply relate to having just had COVID. Repeat chest CT in about 3 months. Calf crampstried gentle OMT. Magnesium 4 g IV often is quite helpful for this. Insomnianotes that he takes lorazepam at bedtime as needed at homefor now given that he is in the hospital we will continue this. We discussed long-term use of benzodiazepines and physical dependency creating tolerance as well as lack of efficacywill want to continue to follow his need for this as an outpatient otherwise as above Subjective Edi Doe is a 28 y/o M with a past medical history of B-cell ALL, secondary hemochromatosis, neutropenic fever, recurrent infections arrived in the ED and was admitted after he got blood work done at [facility] showing elevated LFTs. The patient was seen this morning resting comfortably by bedside. He endorses testing positive for COVID 02/04 and taking approximately three 500mg Tylenol per day and cough syrup at night. The patient also endorses that he has been taking Isoniazid for approximately 1 year, but that he doesn't know what it is treating, possibly a lung pathology. Today the patient denies fevers, chills, headache, palpitations, chest pain, shortness of breath, cough, wheeze, abdominal pain, nausea, or vomiting. The patient does endorse bilateral leg cramping that has occurred before but has not lasted through the entire night and into the next day before. The patient denies calf tenderness, redness, or swelling. The patient reports no other adverse events over night or any other acute concerns. Physical Exam Physical Exam: General: patient resting comfortably, NAD, non-toxic in appearance, answers questions appropriately. Skin: warm, dry, intact HEENT: NC/AT, anicteric sclera, conjunctiva without injection, moist mucus membranes. Heart: +S1/S2, regular, no m/r/g Lungs: equal air entry bilaterally, no rales/rhonchi/wheezes Abd: +BS, soft, NT/ND Ext: warm, no clubbing/cyanosis or edema Neuro: nonfocal, speech intact, no facial droop, moving all extremities. Results & Data Results & Data Vital Signs (Past 12 Hours) Vital Signs Temp Pulse Resp BP Pulse Ox O2 Del Method 02/12/24 14:34 36.8 C 55 L 16 96/63 L 99 Room Air 02/12/24 07:09 36.7 C 55 L 16 104/64 98 Room Air Resident Activity Tracking Resident Involvement: Resident Care Provided Care Provided: Adult Hospital Medicine
--- NOTE | 2024-02-12 18:35 | Billing Data ---
Date of Service February 12, 2024 Coding Level of Care Code 06953 SUB INP/OBS CARE MIN
--- NOTE | 2024-02-12 18:35 | Billing Data ---
Date of Service February 12, 2024 Coding Level of Care Code 26654 SUB INP/OBS CARE MIN
[2024-02-12] MEDS: LORazepam 0.5 MG TAB PO PRN (22:08)
[2024-02-13 06:29] LABS: Basophils # (auto) 0.01 K/uL (0.00-0.20); Basophils % (auto) 0.2 %; Eosinophils # (auto) 0.04 K/uL (0.00-0.50); Eosinophils % (auto) 0.9 %; Hematocrit (blood only) 40.4 % (42.0-52.0); Hemoglobin 13.5 g/dl (14.0-18.0); Immature Granulocytes # (auto) 0.03 K/uL (0.01-0.20); Immature Granulocytes % (auto) 0.7 %; Lymphocytes # (auto) 1.35 K/uL (1.20-3.40); Lymphocytes % (auto) 30.9 %; Mean Corpuscular Hemoglobin 31.3 pg (25.0-34.0); Mean Corpuscular Hgb Conc 33.4 g/dL (32.0-36.0); Mean Corpuscular Volume 93.7 fL (80.0-100.0); Monocytes # (auto) 0.81 K/uL (0.11-0.59); Monocytes % (auto) 18.5 %; Neutrophils # (auto) 2.13 K/uL (1.40-6.50); Neutrophils % (auto) 48.8 %; Platelet Count 378 K/uL (130-400); RDW Coefficient of Variation 15.2 % (11.5-14.5); RDW Standard Deviation 53.1 fL (36.4-46.3); Red Blood Count 4.31 M/uL (4.70-6.10); White Blood Count 4.37 K/ul (4.8-10.8)
[2024-02-13 06:39] LABS: BUN Creatinine Ratio 20.2 (10-20); Calcium 8.7 mg/dl (8.6-10.3); Creatinine Clr Calc Pharmacy 117.1 ml/min; Est GFR (African American) 137.1 ml/min; Est GFR (Non-African American) 118.3 ml/min; Potassium 3.8 mmol/L (3.5-5.1)
[2024-02-13 06:46] LABS: Prothrombin Time 10.7 Seconds (9.0-12.0)
[2024-02-13 07:34] LABS: Albumin Globulin Ratio 0.8 (0.9-2); Albumin Level 3.7 gm/dl (3.4-5.0); Bilirubin,Total 1.7 mg/dl (0.2-1.0); Globulin 4.4 gm/dl (2.5-4.0); Total Protein 8.1 gm/dl (6.0-8.3)
--- NOTE | 2024-02-13 08:38 | Gastrointestinal Consultation ---
Date of Consultation February 13, 2024 Assessment & Plan (1) Acute hepatitis: Clinically no signs of hepatic decompensation. No encephalopathy normal coagulation. Differential diagnosis for transaminitis includes acute viral hepatitis, drug-induced due to isoniazid or Bactrim, chronic rmpvj-wukdkc-wgva disease, recurrent ALL, post COVID hepatitis. Doubt chronic emdgk-amemuy-licy disease in light of lack of other systemic symptoms such as GI symptoms and skin changes. COVID hepatitis very rarely causes liver enzymes this high clinically his symptoms have resolved. Imaging is normal which is a little involvement of the liver less likely and unlikely that his history of iron overload is related to his liver disease. If hepatitis viral serologies are negative then this could be isoniazid toxicity which can occur generally within the first year of treatment. I agree with holding the isoniazid while we wait for the viral serologies. May need to consider liver biopsy if etiology of hepatitis is unclear after initial workup. (2) History of acute lymphoblastic leukemia (ALL): History of Present Illness Reason for Consultation: Acute hepatitis Attending Physician: Mane Frye DO History of Present Illness Patient presents to hospital for further evaluation of abnormal liver enzymes. 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 He was recently diagnosed with his ALL at age 15 relapsed twice 3 years ago had a bone marrow transplant and has been in remission for the last 3 years. Routine blood work revealed elevated liver enzymes and he was told to go to our emergency room to get admitted. Follows with [facility] hematology/oncology. He recently had COVID last week treated symptomatically. Clinically had minor symptoms. He was taking Tylenol and cough syrup over the past week. He denies any significant alcohol use but did have a few drinks today mixer at [facility] a few days ago.he denies a history of any significant liver disease, denies any recent contacts with patient with hepatitis denies any dubious sexual encounters. He has been taking isoniazid for an abnormality on his lungs. Definitive diagnosis of tuberculosis. He has been taking this for about a year. He also has been taking Bactrim suspect for prophylaxis for PCP. He denies any GI symptoms at the present time. Denies any confusion or any GI bleeding. He denies any skin lesions. Allergies Allergy/AdvReac Type Severity Reaction Status Date / Time No Known Allergies Allergy Unverified 02/11/24 17:03 Home Medications Medication Instructions Recorded Confirmed Type Vitamin B6 50 mcg PO DAILY 02/11/24 02/11/24 History acyclovir 1 tab PO BID 02/11/24 02/11/24 History deferasirox 360 mg tablet 350 mg PO UD 02/11/24 02/11/24 History dextroamphetamine-amphetamine 15 15 mg PO .Q AM AND BEFORE 2PM 02/11/24 02/11/24 History mg tablet (Adderall) isoniazid 300 mg tablet 300 mg PO DAILY 02/11/24 02/11/24 History multivitamin 1 tab PO QAM 02/11/24 02/11/24 History penicillin V potassium 250 mg 250 mg PO BID 02/11/24 02/11/24 History tablet Patient History Social History Smoking Status: Light tobacco smoker Tobacco Type: Cigarettes Second Hand Exposure: No; Do You Dip or Chew Tobacco: No; Tobacco Cessation Education Requested by Patient: No Hx Alcohol Use: Yes Alcohol type: beer Hx Substance Use: Yes Preferred Language: Paragu[place] Communication Ability: Effective 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 Beliefs That Will Affect Care: None Current Living Situation: Alone Other Information That Helps Us Care for You: No Feels Safe at Home: Yes Safety Concerns: Feels Safe At This Time Assistive Devices: None Review of Systems Review of Systems: No fever No chills No SOB No CP No Abd pain Physical Exam Physical Exam: Eyes; anicteric HENT No masses Chest clear to A Cor S1, S2 physiologic Abd: softer nontender no masses Ext no edema No asterixis Results & Data Vital Signs (Past 12 Hours) Vital Signs Temp Pulse Resp BP Pulse Ox O2 Del Method 02/13/24 08:03 36.8 C 64 16 101/64 99 Room Air Laboratory Results Laboratory Results - last 48 hr 02/11/24 02/11/24 02/11/24 13:08 13:48 15:35 WBC 5.83 RBC 4.30 L Hgb 13.8 L Hct 41.4 L MCV 96.3 MCH 32.1 MCHC 33.3 RDW Std Deviation 53.3 H RDW Coeff of Apple 15.2 H Plt Count 402 H MPV 9.8 Immature Gran % (Auto) 1.0 Neut % (Auto) 58.1 Lymph % (Auto) 26.4 Sierra % (Auto) 13.7 Eos % (Auto) 0.5 Baso % (Auto) 0.3 Neut # (Auto) 3.38 Lymph # (Auto) 1.54 Sierra # (Auto) 0.80 H Eos # (Auto) 0.03 Baso # (Auto) 0.02 Immature Gran # (Auto) 0.06 PT INR Sodium 137 Potassium 3.5 Chloride 100 Carbon Dioxide 30 Anion Gap 7 BUN 22 Creatinine 0.98 Est Cr Clr Drug Dosing 98.9 Est GFR ( Amer) 120.3 Est GFR (Non-Af Amer) 103.8 BUN/Creatinine Ratio 22.4 H Glucose 111 H Calcium 9.8 Total Bilirubin 2.6 H Direct Bilirubin 1.8 H AST 546 H ALT 759 H Alkaline Phosphatase 379 H Total Creatine Kinase 57 Total Protein 8.9 H Albumin 3.9 Globulin Albumin/Globulin Ratio Lipase 35 Procalcitonin Urine Color Dark Yellow Urine Appearance Clear Urine pH 5.5 Ur Specific [place] > 1.045 H Urine Protein Negative Urine Glucose (UA) Negative Urine Ketones Trace H Urine Blood Negative Urine Nitrite Negative Urine Bilirubin 1+ H Urine Urobilinogen Negative Ur Leukocyte Esterase Negative Acetaminophen < 3 L Ethyl Alcohol mg/dL Anaplasma Smear See Comment Babesia Smear See Comment Lyme Disease Screen Negative Hep Bs Antigen Hepatitis C Antibody Monoscreen Negative SARS-CoV-2, RNA, NAAT 02/11/24 02/11/24 02/11/24 15:40 16:29 17:18 WBC RBC Hgb Hct MCV MCH MCHC RDW Std Deviation RDW Coeff of Apple Plt Count MPV Immature Gran % (Auto) Neut % (Auto) Lymph % (Auto) Sierra % (Auto) Eos % (Auto) Baso % (Auto) Neut # (Auto) Lymph # (Auto) Sierra # (Auto) Eos # (Auto) Baso # (Auto) Immature Gran # (Auto) PT 10.9 INR 1.0 Sodium Potassium Chloride Carbon Dioxide Anion Gap BUN Creatinine Est Cr Clr Drug Dosing Est GFR ( Amer) Est GFR (Non-Af Amer) BUN/Creatinine Ratio Glucose Calcium Total Bilirubin Direct Bilirubin AST ALT Alkaline Phosphatase Total Creatine Kinase Total Protein Albumin Globulin Albumin/Globulin Ratio Lipase Procalcitonin 0.21 Urine Color Urine Appearance Urine pH Ur Specific [place] Urine Protein Urine Glucose (UA) Urine Ketones Urine Blood Urine Nitrite Urine Bilirubin Urine Urobilinogen Ur Leukocyte Esterase Acetaminophen Ethyl Alcohol mg/dL < 10.0 Anaplasma Smear Babesia Smear Lyme Disease Screen Hep Bs Antigen Negative Hepatitis C Antibody Negative Monoscreen SARS-CoV-2, RNA, NAAT POSITIVE A 02/12/24 02/13/24 05:37 05:18 WBC 5.04 4.37 L RBC 3.93 L 4.31 L Hgb 12.7 L 13.5 L Hct 36.7 L 40.4 L MCV 93.4 93.7 MCH 32.3 31.3 MCHC 34.6 33.4 RDW Std Deviation 52.4 H 53.1 H RDW Coeff of Apple 15.1 H 15.2 H Plt Count 346 378 MPV 9.8 10.0 Immature Gran % (Auto) 0.6 0.7 Neut % (Auto) 52.3 48.8 Lymph % (Auto) 28.0 30.9 Sierra % (Auto) 18.1 18.5 Eos % (Auto) 0.8 0.9 Baso % (Auto) 0.2 0.2 Neut # (Auto) 2.64 2.13 Lymph # (Auto) 1.41 1.35 Sierra # (Auto) 0.91 H 0.81 H Eos # (Auto) 0.04 0.04 Baso # (Auto) 0.01 0.01 Immature Gran # (Auto) 0.03 0.03 PT 11.0 10.7 INR 1.0 1.0 Sodium 136 134 L Potassium 3.7 3.8 Chloride 102 100 Carbon Dioxide 27 29 Anion Gap 7 5 BUN 21 17 Creatinine 0.89 0.84 Est Cr Clr Drug Dosing 110.5 117.1 Est GFR ( Amer) 133.9 137.1 Est GFR (Non-Af Amer) 115.5 118.3 BUN/Creatinine Ratio 23.6 H 20.2 H Glucose 95 100 H Calcium 9.1 8.7 Total Bilirubin 2.0 H 1.7 H Direct Bilirubin AST 428 H 384 H ALT 683 H 729 H Alkaline Phosphatase 333 H 382 H Total Creatine Kinase Total Protein 7.6 8.1 Albumin 3.5 3.7 Globulin 4.1 H 4.4 H Albumin/Globulin Ratio 0.9 0.8 L Lipase Procalcitonin Urine Color Urine Appearance Urine pH Ur Specific [place] Urine Protein Urine Glucose (UA) Urine Ketones Urine Blood Urine Nitrite Urine Bilirubin Urine Urobilinogen Ur Leukocyte Esterase Acetaminophen Ethyl Alcohol mg/dL Anaplasma Smear Babesia Smear Lyme Disease Screen Hep Bs Antigen Hepatitis C Antibody Monoscreen SARS-CoV-2, RNA, NAAT Diagnostic Findings Chest CT 02/12/24 14:46 CT OF THE CHEST WITH IV CONTRAST CLINICAL HISTORY: Lung consolidation on CT AP COMPARISON STUDY: CT of the abdomen and pelvis February 11, 2024. TECHNIQUE: Following IV administration of 90 mL of Optiray, helical axial images of the chest were obtained. Sagittal and coronal reconstructions were viewed as well as maximal intensity projections on an independent 3-D workstation. Automated exposure control was utilized for the study. A dose lowering technique was utilized adhering to the principles of ALARA. CT DOSE: 517.15 mGy.cm FINDINGS: No enlarged axillary, mediastinal or hilar lymph nodes are present. The size of the heart is normal. There is no pericardial effusion. No pneumothorax or pleural effusion is present. The central airways are patent. There are a few clusters of tree-in-bud nodules within the right upper and right middle lobes. No confluent consolidation is present. There is no cavitation. The left lung is clear. Nonspecific increased sclerosis within the visualized skeletal structures is noted. There are multiple Schmorl's nodes. Gallstones are again noted within the gallbladder. IMPRESSION: 1. Several clusters of tree-in-bud nodules within the right upper and right middle lobes. The findings favor an infectious process such as bronchiolitis. A follow-up chest CT in 3 months to ensure resolution is recommended. 2. Sclerosis within visualized skeletal structures. The etiology and clinical significance of this finding is uncertain. No well-defined lesions. 3. Cholelithiasis. ACT 112: Negative or not required by law. Electronically signed by: Cy Stevenson M.D. 02/12/2024 3:[address] SCAN OF THE ABDOMEN AND PELVIS WITH IV CONTRAST CLINICAL HISTORY: Right upper quadrant abdominal pain. Elevated hepatic transaminases COMPARISON STUDY: Abdominal ultrasound performed the same day 02/11/2024. TECHNIQUE: Following the IV administration of 94 cc of Optiray 320, CT scan of the abdomen and pelvis is performed from the lung bases to the proximal femora. Images are reviewed in the axial, sagittal, and coronal planes. IV contrast was administered without complication. A dose lowering technique was utilized adhering to the principles of ALARA. CT DOSE: 569.12 mGy.cm FINDINGS: Lung bases: The heart is normal in size and without pericardial effusion. Tree in bud consolidation is seen in the right middle lobe. The lung bases are otherwise clear. Liver: The contrast-enhanced liver is normal in size, contour, and attenuation. There is no intrahepatic biliary ductal dilatation. The hepatic veins and portal veins are patent. Gallbladder: There are numerous calcified gallstones within a contracted gallbladder. There is no CT evidence of acute cholecystitis. Spleen: Normal in size and attenuation. Pancreas: Unremarkable. Adrenal glands: Unremarkable. Kidneys: The contrast enhanced kidneys are normal in size and without hydronephrosis. The kidneys enhance symmetrically. An 8 mm cyst is seen in the right upper pole. Abdominal vasculature: The abdominal aorta is normal in course and caliber. Bowel: There is wavl-nd-rqthuvct colonic fecal retention. No bowel obstruction is seen. The appendix is not identified and reported surgically absent. Peritoneum: There is no intraperitoneal free air or abdominal ascites. There is a small fat-containing umbilical hernia. Lymphadenopathy: There are prominent retroperitoneal lymph nodes. Aortocaval node nodes as seen on images #114 and #122 measure up to 9 mm in short axis. No additional suspicious lymph nodes are identified in the abdomen or pelvis. Pelvic viscera: The bladder, prostate, and seminal vesicles are normal as visualized. Skeletal structures: No lytic or blastic lesions are seen. IMPRESSION: 1. There is tree-in-bud airspace consolidation in the right middle lobe, likely an infectious/inflammatory basis. Correlate clinically. 2. Cholelithiasis without CT evidence of acute cholecystitis. 3. There are prominent nonspecific retroperitoneal lymph nodes. Although not highly suspicious, given the location a testicular neoplasm should be excluded. Consider a scrotal ultrasound for further evaluation. 4. Additional findings as above. ACT 112: Negative or not required by law. Electronically signed by: Jacques Lunsford M.D. 02/11/2024 3:42 PM Dictated: 02/11/24 1536 Transcribed: 02/11/24 1536 PG Care Time/CCT Total # of Minutes Spent Total Time Spent with Patient: Total time spent is greater than 50% in coordination of care (as documented) at patient's floor/unit and/or counseling patient: Coding Level of Care Code 98434 IN/OBS CONSULT LVL 5,80M Diagnoses Acute hepatitis B17.9 History of acute lymphoblastic leukemia (ALL) Z85.6
--- NOTE | 2024-02-13 16:27 | Hospitalist Progress Note ---
Date of Service February 13, 2024 Assessment & Plan (1) Transaminitis: Plan: - Sent in by [facility] [[email or web address]] for elevated LFTs on 02/10 - Lipase WNL, no leukocytosis; afebrile - Gallbladder ultrasound without signs of acute cholecystitis - ETOH, Acetaminophen, Procalcitonin all wnl - Monospot negative - Hepatitis panel ordered, pending - Tickborne panel ordered: No evidence of intracytoplasmic neutrophilic inclusions or red blood cell inclusions - potentially due to combination of recent COVID infection leading to Tylenol use, recent alcohol use on 02/08 (5 beers), and isoniazid - Consulted GI, recommend potential liver biopsy if viral hepatitis panels are negative and liver damage is not due to isoniazid toxicity - Patient amenable to liver biopsy, may be best option to narrow down cause of his acute liver injury - CBC, CMP, PT/INR QAM (2) History of acute lymphoblastic leukemia (ALL): Plan: - Dx of B-Cell ALL at 11yo - S/p CAR-T 01/2020 - S/p allo bone marrow transplant 01/2021 - Last bone marrow biopsy January 2022, MRD negative - Follows with [facility] oncology (Dr. Lisa Stevenson) - In remission x 3 years - Transaminitis as a side effect of transplant, possible eabub-abuolj-kall, can trial prednisone/Bactrim on Wednesday - Continue Pen VK 500mg daily and acyclovir 400 mg BID - Hold Isoniazid (3) Retroperitoneal lymphadenopathy: Plan: - A/P CT did not reveal acute cholecystitis, but noted prominent non-specific retroperitoneal lymph nodes; testicular neoplasm could not be excluded - Scrotal U/S: non-specific thickening of scrotal skin w/o mass, hernia, torsion, or varicocele - Past CT AP in Mar 2023 did not show similar lymphadenopathy - Consider biopsy of the lymph nodes vs repeat imaging in 1 month (4) Lung consolidation: Plan: - CT AP showed tree in bud consolidation of right middle lobe, favoring infectious/inflammatory process - CT chest August 2022: Diffuse bronchial wall thickening, cluster ground glass nodule left lower lobe, bronchocentric groundglass airspace opacities scattered in R. lung, potentially sequela of prior COVID +/- superimposed new atypical infection - CT chest ordered: Several tree in bud nodules within right middle and right upper lobes, favoring an infectious process like bronchiolitis - Recommendation: repeat imaging in 3 months to ensure resolution (5) COVID: Plan: - Patient reports he recently tested positive for COVID last week on 02/04 - COVID (+) on arrival - Isolation precautions for now - No cough, wheeze, SOB - Supportive care Plan Disposition: Admit to [facility] Full code Regular diet VTE PPx: Low risk, encourage ambulation Admission and Anticipated Discharge Date Admission Date: February 11, 2024 Supervising Physician Co-Signing Physician Notes I personally examined the patient and verified all parks points of history and exam, discussed case, and agree with decision making with Dr Monzon leg cramps improved. otherwise feeling reasonably well. discussed plans and need to get more information from his oncologist. Vitals noted, in general he is awake and alert pleasant no distress. HEENT normocephalic atraumatic mucous membranes moist. Breathing unlabored no accessory muscle use good effort. Skin without rashes pallor or icterus. Transaminitisrate of change stopped - more or less the same. graft vs host vs isoniazid seems most likely - awaiting further input from transplant oncology and consider liver bx if unclear. also if isoniazid is culprit - his transplant oncologist was hopefully going to be able to determine what he was on it for, so that if we have to stop it we know what suppressive therapy might need to be substituted. Retroperitoneal adenopathyconsider biopsy in the near future, testicular ultrasound reassuring. Continue to follow clinically otherwise tree-in-bud lung findingsgiven his immune compromise and risk for significant opportunistic pathogens, obtained chest CT to quantify further what was seen on abdominal slices of his CT abdomen pelvisunfortunately the findings were fairly minimal. May simply relate to having just had COVID. Repeat chest CT in about 3 months. Calf crampsimproved. Insomnianotes that he takes lorazepam at bedtime as needed at homefor now given that he is in the hospital we will continue this. We discussed long-term use of benzodiazepines and physical dependency creating tolerance as well as lack of efficacywill want to continue to follow his need for this as an outpatient and consider altering regimen otherwise as above Subjective The patient was seen this morning resting comfortably by bedside. Patient's major complaint yesterday was calf spasms and cramping that have greatly improved with walking, fluids, and magnesium therapy. The different options for further work up was discussed with the patient. Patient's LFT elevation is complex and may require a liver biopsy to yield a definitive answer. The patient may also require a biopsy for retroperitoneal lymphadenopathy vs watchful waiting with a CT AP in one month. 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 Today the patient denies fevers, chills, headache, palpitations, chest pain, shortness of breath, cough, wheeze, abdominal pain, nausea, or vomiting. The patient denies calf tenderness, redness, or swelling. The patient reports no other adverse events over night or any other acute concerns. Physical Exam Physical Exam: General: patient resting comfortably, NAD, non-toxic in appearance, answers questions appropriately. Skin: warm, dry, intact HEENT: NC/AT, anicteric sclera, conjunctiva without injection, moist mucus membranes. Heart: +S1/S2, regular, no m/r/g Lungs: equal air entry bilaterally, no rales/rhonchi/wheezes Abd: +BS, soft, NT/ND Ext: warm, no clubbing/cyanosis or edema Neuro: nonfocal, speech intact, no facial droop, moving all extremities. Results & Data Results & Data Vital Signs (Past 12 Hours) Vital Signs Temp Pulse Resp BP Pulse Ox O2 Del Method 02/13/24 15:13 36.6 C 79 16 103/67 98 Room Air 02/13/24 08:03 36.8 C 64 16 101/64 99 Room Air Resident Activity Tracking Resident Involvement: Resident Care Provided Care Provided: Adult Hospital Medicine
--- NOTE | 2024-02-13 18:01 | Billing Data ---
Date of Service February 13, 2024 Coding Level of Care Code 09699 SUB INP/OBS CARE
[2024-02-13 21:18] VITALS: TEMP 98.1
[2024-02-14 06:43] LABS: Basophils # (auto) 0.02 K/uL (0.00-0.20); Basophils % (auto) 0.4 %; Eosinophils # (auto) 0.04 K/uL (0.00-0.50); Eosinophils % (auto) 0.7 %; Hematocrit (blood only) 38.6 % (42.0-52.0); Hemoglobin 13.7 g/dl (14.0-18.0); Immature Granulocytes # (auto) 0.03 K/uL (0.01-0.20); Immature Granulocytes % (auto) 0.5 %; Lymphocytes # (auto) 1.67 K/uL (1.20-3.40); Lymphocytes % (auto) 29.6 %; Mean Corpuscular Hemoglobin 32.2 pg (25.0-34.0); Mean Corpuscular Hgb Conc 35.5 g/dL (32.0-36.0); Mean Corpuscular Volume 90.6 fL (80.0-100.0); Monocytes % (auto) 14.2 %; Neutrophils # (auto) 3.08 K/uL (1.40-6.50); Neutrophils % (auto) 54.6 %; Platelet Count 412 K/uL (130-400); RDW Coefficient of Variation 15.4 % (11.5-14.5); RDW Standard Deviation 51.1 fL (36.4-46.3); Red Blood Count 4.26 M/uL (4.70-6.10); White Blood Count 5.64 K/ul (4.8-10.8)
[2024-02-14 06:47] LABS: BUN Creatinine Ratio 23.2 (10-20); Calcium 9.1 mg/dl (8.6-10.3); Creatinine Clr Calc Pharmacy 119.9 ml/min; Est GFR (African American) 138.5 ml/min; Est GFR (Non-African American) 119.5 ml/min; Potassium 3.9 mmol/L (3.5-5.1)
[2024-02-14 06:52] LABS: Albumin Globulin Ratio 0.8 (0.9-2); Albumin Level 3.6 gm/dl (3.4-5.0); Bilirubin,Total 1.9 mg/dl (0.2-1.0); Globulin 4.7 gm/dl (2.5-4.0); Total Protein 8.3 gm/dl (6.0-8.3)
--- NOTE | 2024-02-14 06:56 | Hospitalist Progress Note ---
Date of Service February 14, 2024 Assessment & Plan (1) Transaminitis: Plan: - Sent in by [facility] for elevated LFTs on 02/10 - Lipase WNL, no leukocytosis; afebrile - Gallbladder ultrasound without signs of acute cholecystitis - ETOH, Acetaminophen, Procalcitonin all wnl - Monospot negative - Hepatitis panel ordered, pending - Tickborne panel ordered: No evidence of intracytoplasmic neutrophilic inclusions or red blood cell inclusions Per GI consult note today 1pm: - Elevated liver function test possibly related to recent COVID. - Other possibilities include drug reaction, INH was stopped. - As transaminases and bilirubin are trending down we will hold liver biopsy right now. - If stable okay to discharge from GI standpoint and follow closely as an outpatient. - Reassess need for INH, possible infectious disease consultation. - history of Dtwsq-Vakabh-Ozdz disease of the liver and skin, precipitated by C Diff and CMV, status post tacrolimus in 2021 - CBC, CMP, PT/INR QAM - positive for Hepatitis A IgM antibodies per 02/11/24 blood draw; patient had Hep A vaccine in 2022 - call [facility] about blood results - see if patient had HIV blood test at visit for PrEP - call pt's oncologist from [facility], update him with pt's current status and find out when and why isoniazid was prescribed - patient to follow up with home oncologist (2) Hepatitis A test positive: Plan: positive for Hepatitis A IgM antibodies per 02/11/24 blood draw; Hep A vaccination in 2022 - continue current isolation precautions - consider discharge tomorrow as patient is asymptomatic, transaminases still elevated but downtrending - call pt's oncologist from [facility], update him with pt's current status and find out when and why isoniazid was prescribed (3) History of acute lymphoblastic leukemia (ALL): Plan: - 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 Lisa Stevenson) - In remission x 3 years - Transaminitis as a possible side effect of transplant, [id number] but unlikely due to lack of further systemic symptoms,can trial prednisone/Bactrim on Wednesday - Continue Pen VK 500mg daily and acyclovir 400 mg BID - Hold Isoniazid as we await viral hepatitis lab results (4) Retroperitoneal lymphadenopathy: Plan: - A/P CT did not reveal acute cholecystitis, but noted prominent non-specific retroperitoneal lymph nodes; testicular neoplasm could not be excluded - Scrotal U/S: non-specific thickening of scrotal skin w/o mass, hernia, torsion, or varicocele - Past CT AP in Mar 2023 did not show similar lymphadenopathy - Consider biopsy of the lymph nodes vs repeat imaging in 1 month (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: Plan: - history of Panjl-Ypxnht-Spsf disease of the liver and skin, precipitated by C Diff and CMV, status post tacrolimus in 2021 - high LFTs potentially due to combination of recent COVID infection leading to Tylenol use, recent alcohol use on 02/08 (5 beers), and prophylactic isoniazid - per GI consultation, recommended potential liver biopsy if viral hepatitis panels are negative and liver damage is not due to isoniazid toxicity - Patient amenable to liver biopsy, may be best option to narrow down cause of acute liver injury - CBC, CMP, PT/INR QAM - positive for Hepatitis A IgM antibodies per 02/11/24 blood draw; Hep A vaccination in 2022 (6) Lung consolidation: Plan: - CT AP showed tree in bud consolidation of right middle lobe, favoring infectious/inflammatory process - CT chest August 2022: Diffuse bronchial wall thickening, cluster ground glass nodule left lower lobe, bronchocentric groundglass airspace opacities scattered in R. lung, potentially sequela of prior COVID +/- superimposed new atypical infection - CT chest ordered: Several tree in bud nodules within right middle and right upper lobes, favoring an infectious process like bronchiolitis - Recommendation: repeat imaging in 3 months to ensure resolution - has been on isoniazid for <1 year per patient history, being held while we await viral hepatitis labs (7) COVID: Plan: - Patient reports he recently tested positive for COVID last week on 02/04 - COVID (+) on arrival - Isolation precautions for now - mild infrequent cough without sputum; no fever, myalgias, chest pain, wheeze, SOB - Supportive care, encourage hydration and food intake, ambulation Plan Disposition: Admit to [facility] Full code Regular diet VTE PPx: Low risk, encourage ambulation Admission and Anticipated Discharge Date Admission Date: February 11, 2024 Supervising Physician Co-Signing Physician Notes ATTESTATION I also saw the patient and confirmed parks portions of the history and exam. I agree with the impression and plan in the resident documentation, and as summarized below. Similar to previous, he feels rather well. In clarification to his history, the patient underwent routine LFTs prior to starting HIV PrEP. When the LFTs came back elevated, he was referred to the emergency department for evaluation. Additionally, patient was never told that he had tuberculosis. Presumably, he was put on isoniazid for prophylaxis given his history of a very of a bone marrow transplant. EXAM 97/63, 66, 18, 36.7, 99% room air Sclera nonicteric; No jaundice appreciated. He is pleasant and alert. No distress appreciated. Heart regular rate and rhythm. Respirations nonlabored. Abdomen soft and nontender. Even with firm palpation of the right upper quadrant, unable to elicit any tenderness. DATA Labs Hemoglobin 13.7 Sodium 134, potassium 3.9, BUN 19, creatinine 0.82 AST 351, ALT 713, alkaline phosphatase 381, total bilirubin 1.9 Hepatitis A IgM positive. IMPRESSION & PLAN Transaminitis Acute Hepatitis A Previous differential diagnosis included graftpost versus side effect of isoniazid, but the realization today of positive hepatitis A IgM antibodies suggests acute hepatitis A. Interestingly, he has minimal symptoms; he denies any abdominal pain, nausea, vomiting. However, the transaminitis was found incidentally when he was undergoing testing prior to starting PrEP. In theory, Hep A viremia and transaminitis can precede clinical symptoms, so this may explain why he has none of the typical Hepatitis A symptoms such as nausea, vomiting, diarrhea, abdominal pain. Review of outside medical records does indicate a single Hep A vaccine administered > 12 months ago. While even a single dose should provide immunity, perhaps his immune system did not respond? Alternatively, his positive test could represent a false positive secondary to cross reactivity from another viral process. Need to confirm HIV status; I assume this was tested at the time of the pre PrEP blood work. Will reach out to his transplant oncologist after the holiday to update. Unsure about Isoniazid; will discuss with transplant oncology and gastroenterology, but reasonable to hold until LFTs normalize. Else, treatment to be symptomatic care and trending LFTs. Will need to notify [employer]; there may be for potential contacts. Recent COVID Infection He describes having some mild fatigue which is the reason he took a home COVID test. Otherwise, no COVID-specific symptoms. This may explain the pulmonary abnormalities on the CT scan, however, he had similar appearing CT of chest and abdomen and pelvis dating back to 2020 (maybe longer, 2020 was as far as available outside records went back). While radiology recommended follow-up CT scan in 3 months to assure resolution, this may not be needed given prior CT demonstrating similar This decision can be made as an outpatient, and may be directed by clinical course as well. ALL S/P bone marrow transplant Additional per resident documentation Subjective The patient was seen this morning resting comfortably. This morning patient is feeling well, eating breakfast without issue. Patient's major complaint over the weekend was calf spasms and cramping that have greatly improved with walking, fluids, and magnesium therapy. ATTESTATION I also saw the patient and confirmed parks portions of the history and exam. I agree with the impression and plan in the resident documentation, and as summarized below. EXAM DATA Labs Imaging Micro IMPRESSION & PLAN Additional per resident documentation Discussed with the patient that we are awaiting viral hepatitis panel results. Patient understood that his LFT elevation may be multifactorial and may require a liver biopsy to yield a definitive answer. Also discussed that he may require a biopsy for retroperitoneal lymphadenopathy vs watchful waiting with a CT AP in one month. 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 Today the patient endorses minor infrequent cough with no sputum; denies fevers, body aches, chills, headache, palpitations, chest pain, shortness of breath, wheeze, abdominal pain or swelling, nausea, or vomiting. Endorses normal bowel movements and no urinary concerns. Denies calf tenderness, redness, or swelling. Reports no other adverse events over night or any other acute concerns. Review of Systems Review of Systems: All systems reviewed & are unremarkable except as noted in HPI & below Physical Exam Constitutional: WD/WN, vitals as above Eyes: PERRL, conjunctivae normal, anicteric sclerae no jaundice of sclerae Neck: normal visual inspection Respiratory: normal respiratory effort, lungs clear to auscultation Cardiovascular: RRR, no murmur, no edema Gastrointestinal (Abdomen): normal bowel sounds, soft, nontender, no hepatosplenomegaly Musculoskeletal: no cyanosis or clubbing, extremities motor strength 5/5 Skin: no rashes, warm and dry Psychiatric: A+Ox3, euthymic affect Results & Data Results & Data Vital Signs (Past 12 Hours) Vital Signs Temp Pulse Resp BP Pulse Ox O2 Del Method 02/14/24 08:54 Room Air 02/14/24 08:13 36.7 C 66 18 97/63 L 99 Room Air 02/13/24 21:17 36.7 C 69 16 102/69 99 Room Air 02/13/24 15:13 36.6 C 79 16 103/67 98 Room Air Intake and Output 02/13/24 02/14/24 02/14/24 22:59 06:59 14:59 Intake Total 500 / 500 Balance 500 / 500 Intake: Oral 500 / 500 Other: # Unmeasured Voids 1 2 Laboratory Results Abnormal lab results 02/11/24 02/14/24 Range/Units 16:29 05:48 RBC 4.26 L (4.70-6.10) M/uL Hgb 13.7 L (14.0-18.0) g/dl Hct 38.6 L (42.0-52.0) % RDW Std Deviation 51.1 H (36.4-46.3) fL RDW Coeff of Apple 15.4 H (11.5-14.5) % Plt Count 412 H (130-400) K/uL [place] # (Auto) 0.80 H (0.11-0.59) K/uL Sodium 134 L (136-145) mmol/L BUN/Creatinine Ratio 23.2 H (10-20) Glucose 106 H (70-99(Fasting)) mg/dl Total Bilirubin 1.9 H (0.2-1.0) mg/dl AST 351 H (13-39) U/L ALT 713 H (7-52) U/L Alkaline Phosphatase 381 H (34-104) U/L Globulin 4.7 H (2.5-4.0) gm/dl Albumin/Globulin Ratio 0.8 L (0.9-2) Hepatitis A IgM Ab REACTIVE A (NON-REACTIVE) Diagnostic Findings Hepatitis A IgM antibody - REACTIVE (lab drawn 02/11/24) Resident Activity Tracking Resident Involvement: Resident Care Provided Care Provided: Adult Hospital Medicine
[2024-02-14 06:57] LABS: Prothrombin Time 10.9 Seconds (9.0-12.0)
[2024-02-14] MEDS: SULFAMETHOXAZOLE/TRIMETHOPRIM DS 800/160MG TAB PO SCH (08:25)
--- NOTE | 2024-02-14 13:07 | Gastroenterology Progress Note ---
Date of Service February 14, 2024 Assessment & Plan (1) Acute hepatitis: Plan: Elevated liver function test possibly related to recent COVID. Other possibilities include drug reaction, INH was stopped. As transaminases and bilirubin are trending down we will hold liver biopsy right now. If stable okay to discharge from GI standpoint and follow closely as an outpatient. Reassess need for INH, possible infectious disease consultation. (2) History of acute lymphoblastic leukemia (ALL): Plan: In remission. Status post bone marrow transplant. Admission and Anticipated Discharge Date Admission Date: February 11, 2024 Subjective Patient feels fine. Denies abdominal pain, nausea, vomiting, weakness, chills, fever, diaphoresis. Incidentally discovered elevation of transaminases with an acute hepatitis pattern. Previous liver function tests about 6 weeks ago were normal. Status post bone marrow transplant for ALL approximately 3 years ago. No immunosuppression. The patient takes INH at home. This medication is being held. Recent COVID, tested positive on February 10. Transaminases and total bilirubin are trending down. Review of Systems Constitutional: Denies fatigue weakness, chills, fever. Respiratory: Denies cough, shortness of breath. Cardiovascular: Additional Comments: Denies chest pain, palpitations. Gastrointestinal: Denies abdominal pain, nausea, vomiting, diarrhea Musculoskeletal: Denies arthralgias. Physical Exam Constitutional: WD/WN, vitals as above Respiratory: normal respiratory effort, lungs clear to auscultation Cardiovascular: RRR, no murmur, no edema Gastrointestinal (Abdomen): normal bowel sounds, soft, nontender, no hepatosplenomegaly Musculoskeletal: no cyanosis or clubbing, extremities motor strength 5/5 Results & Data Results & Data Vital Signs (Past 12 Hours) Vital Signs Temp Pulse Resp BP Pulse Ox O2 Del Method 02/14/24 08:54 Room Air 02/14/24 08:13 36.7 C 66 18 97/63 L 99 Room Air Laboratory Results Laboratory data reviewed, hepatitis C antibody is negative, hepatitis B surface antigen negative, Anaplasma smear negative, Monospot negative. COVID-19 positive test (U07.1, COVID-19) positive on February 10 PG Care Time/CCT Total # of Minutes Spent Total Time Spent with Patient: Total time spent is greater than 50% in coordination of care (as documented) at patient's floor/unit and/or counseling patient: Coding Level of Care Code 31301 SUB INP/OBS CARE MIN Diagnoses Acute hepatitis B17.9 History of acute lymphoblastic leukemia (ALL) Z85.6
[2024-02-14 13:41] LABS: Hepatitis A Antibody IgM REACTIVE (NON-REACTIVE); Hepatitis B Core Antibody IgM NON-REACTIVE (NON-REACTIVE)
[2024-02-14 20:50] VITALS: O2SAT 100
[2024-02-14] MEDS: FAMOTIDINE 10 MG TABLET PO ONE (23:54)
--- NOTE | 2024-02-15 06:42 | Discharge Summary ---
Date of Service February 15, 2024 Admission HPI Per Admitting Provider Edi is a pleasant 28-year-old male with PMH of B-cell ALL, secondary hemochromatosis, insomnia, neutropenic fever, CMV gastritis, and recurrent infections (group B strep bacteremia, human metapneumovirus). He presented on 02/10 after having blood work obtained at [facility] that showed elevated liver enzyme levels. 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 Follows with [facility] hematology/oncology. Patient does report abdominal bloating, headache, and dry cough, but no other symptoms. He recently moved from [place] to attend [employer] for a PhD in philosophy. He does report that he tested positive for COVID last week on 02/04 and has been trying to quarantine. While his symptoms have largely subsided, he reports he was taking Tylenol and cough syrup over the past week. He would take 2 Tylenol 500 mg in the morning, as well as cough syrup at night (and occasionally an additional Tylenol tablet at night for body aches). He also reports that he was drinking alcohol on 02/08; he had about 5 beers at a [employer]. No history of acute hepatitis. He denies history of heavy alcohol use. His body aches and most of his COVID symptoms have resolved, but he does have ongoing dry cough, headache, and abdominal bloating. No recent change in diet. Occasional tobacco cigarette smoker (socially). Patient did not take his regular morning medications today; he does take isoniazid, but is unsure why he takes it (believes it was for a lung condition; he does not believe it was for history of DVT). Patient's vitals are stable at time of admission. ED course: - Vitals signs stable. - History obtained via patient. History as above. - Chronic conditions affecting care: Leukemia - Differential diagnoses include, but are not limited to: Cholelithiasis; choledocholithiasis; acute cholecystitis; acute viral syndrome; - Order placed for continuous cardiac monitoring. At this time, monitor showed rate of 65 bpm with normal sinus rhythm, per my interpretation. - External medical records reviewed. - Laboratory workup interpreted by myself showed normal WBC; normal PT/INR; normal procalcitonin; stable electrolytes; elevated total bilirubin (2.6); transaminitis (AST 546; ALT 759); elevated alkaline phosphatas (379); normal CK; normal lipase; negative alcohol; negative acetaminophen level; negative Monospot - Negative Lyme/anaplasma/babesia - Acute hepatitis panel ordered. - UA negative for infection. Noted to have trace ketonuria and positive urine bilirubin. - US gallbladder showed cholelithiasis but no sonographic evidence of acute cholecystitis. No biliary ductal dilatation. - CT abdomen/pelvis with IV contrast showed cholelithiasis without acute cholecystitis. Noted to have prominent nonspecific retroperitoneal lymph nodes. - Did discuss patient's case with his oncologist at [facility], Dr Lisa Stevenson, at 16:05. He reports that the patient has a history of bone marrow transplant and reports that one of the complications from that is potentially igbnf-fodnhf-kqwk disease of the liver. He request that we rule out hepatitis and any other infectious etiology. He reports that once infection has been ruled out, the pa tient should be started on steroids. - Discussion was had with casework manager about patient's case and need for admission - Hospitalist, Dr. Andrews, consulted for admission - Patient admitted to [facility] for further evaluation and management ROS: Patient endorses intermittent headache, dry cough, and abdominal bloating. Patient denies fever, chills, night sweats, dizziness, lightheadedness, joint pain, chest pain, chest palpitations, SOB, cough, pleuritic CP, abdominal pain, N/V/D, changes in urinary or bowel habits, melena, blood in the urine or stool, or numbness or tingling in the arms or legs. Admission Exam Per Admitting Provider H&P Physical Exam, 02/11/24: General: no acute distress; pleasant affect; anxious; non-toxic appearing; well- nourished; cooperative; SpO2 96% on RA HEENT: normocephalic, atraumatic; no scleral icterus; PERRLA w/ EOMs intact; vision and hearing grossly intact Neck: supple; no lymphadenopathy; trachea midline Skin: warm, dry without signs of tenting; no cyanosis; no rashes, bruising, lesions, or erythema noted CV: chest wall NTP; RRR; S1/S2 normal; no murmurs/rubs/gallops; pulses intact and symmetric at radial, DP, and PT Lungs: no acute respiratory distress; symmetrical chest wall expansion; clear breath sounds across all lung argueta w/o adventitious sounds; no wheezing ABD: Soft, NTP; BS present; no rebound/guarding; no distention; no rashes or bruising on the abdomen or flanks bilaterally MSK: no tics or fasciculations; no edema noted in the LEs b/l, nonerythematous Neuro: A&Ox3; normal mood and affect; fluent speech; no focal deficits; sensation grossly intact in the LEs b/l Principal Diagnosis transaminitis with positive Hepatitis A IgM antibodies Discharge Exam Constitutional WD/WN, vitals as above well developed and well nourished Eyes PERRL, conjunctivae normal, anicteric sclerae EOM intact bilaterally Neck trachea midline, no thyromegaly Respiratory normal respiratory effort, lungs clear to auscultation Cardiovascular RRR, no murmur, no edema Gastrointestinal (Abdomen) normal bowel sounds, soft, nontender, no hepatosplenomegaly no jaundice on inspection, no abdominal mass or swelling on inspection or palpated, no tenderness to palpation Musculoskeletal no cyanosis or clubbing, extremities motor strength 5/5 Skin no rashes, warm and dry Psychiatric A+Ox3, euthymic affect Discharge Data Allergies Allergy/AdvReac Type Severity Reaction Status Date / Time No Known Allergies Allergy Unverified 02/11/24 17:03 Vaccinations As of 02/11/2024: Hepatitis A, adult - 12/10/2022 Hepatitis B, adult - 08/13/2022, 12/10/2022 Meningococcal conjugate 4-valent (MCV4O) - 08/13/2022 Pneumococcal conjugate 13-valent (Prevnar) - 08/13/2022 DTap - 08/13/2022 Hib PRP-T (Haemophilus B conjugate) - 08/13/2022 IPV (inactivated polio) - 08/13/2022 COVID-19 mRNA (Libratone) - 07/07/2021 COVID-19 vector-nr (One Month) - 11/12/2020 Tdap - 01/30/2011, 08/06/2017 Influenza - 05/18/2014, 03/22/2015, 07/06/2018, 03/12/2020 Consultations 02/11/24 16:10 ED Decision to Admit Stat 02/12/24 14:46 Consult Gastroenterology Routine Ordered Studies 02/11/24 13:55 US gallbladder Stat 02/11/24 14:55 CT Abd and Pelvis [CT abd pelvis IV con only] Stat 02/11/24 17:23 US scrotum/testicle Urgent 02/12/24 14:46 CT chest with contrast [CT chest diagnostic w con] Routine Hospital Course (1) Transaminitis: 02/13/24: - Sent in by [facility] for elevated LFTs on 02/10 - Lipase WNL, no leukocytosis; afebrile - Gallbladder ultrasound without signs of acute cholecystitis - ETOH, Acetaminophen, Procalcitonin all wnl - Monospot negative - Hepatitis panel ordered, pending - Tickborne panel ordered: No evidence of intracytoplasmic neutrophilic inclusions or red blood cell inclusions Per GI consult note 02/14/24, 1pm: - Elevated liver function test possibly related to recent COVID. - Other possibilities include drug reaction, INH was stopped. - As transaminases and bilirubin are trending down we will hold liver biopsy right now. - If stable okay to discharge from GI standpoint and follow closely as an outpatient. - Reassess need for INH, possible infectious disease consultation. 02/14/24 - history of Owxbx-Rzlhxs-Zlmm disease of the liver and skin, precipitated by C Diff and CMV, status post tacrolimus in 2021 - CBC, CMP, PT/INR QAM - positive for Hepatitis A IgM antibodies per 02/11/24 blood draw; patient had Hep A vaccine on 12/10/2022 - call pt's oncologist from [facility], update him with pt's current status and find out when and why isoniazid was prescribed - patient to follow up with home oncologist 02/15/24: - patient notes he has not been having any symptoms at all, feeling well with no complaints - physical exam unremarkable - mild increase in LFTs reported to patient - patient discharged with instructions to follow up closely with PCP at [facility] and outpatient Infectious Disease, and to go to hospital if starts feeling unwell with fever, abdominal pain and/or swelling, nausea, etc. - patient also instructed not to take isoniazid due to potential for continued liver injury until we understand why and when exactly he was prescribed it - spoke briefly with pt's transplant oncologist Dr. Lisa Stevenson at [facility], he recommended that pt follow up closely with infectious disease. - patient reached out to Dr. Stevenson via [facility], we will call patient tomorrow 02/16/[address] Stevenson has gotten back to him and emphasize the importance of infectious disease followup. (2) Hepatitis A test positive: 02/14/24 result from 02/11/24 blood draw: positive for Hepatitis A IgM antibodies per 02/11/24 blood draw; Hep A vaccination in 2022 - transaminases still elevated but appear stable, patient continues to be asymptomatic with unremarkable physical exam - spoke briefly with pt's transplant oncologist Dr. Lisa Stevenson at [facility], he recommended that pt follow up closely with infectious disease (3) History of acute lymphoblastic leukemia (ALL): - Dx of B-Cell ALL at 11yo - S/p CAR-T 01/2020 - S/p allo bone marrow transplant 01/2021 - Last bone marrow biopsy January 2022, MRD negative - Follows with [facility] oncology (Dr. 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: - history of Hpjxk-Idilds-Oasn disease of the liver and skin, precipitated by C Diff and CMV, status post tacrolimus in 2021 - high LFTs potentially due to combination of recent COVID infection leading to Tylenol use, recent alcohol use on 02/08 (5 beers), and prophylactic isoniazid - per GI consultation, recommended potential liver biopsy if viral hepatitis panels are negative and liver damage is not due to isoniazid toxicity - Patient amenable to liver biopsy, may be best option to narrow down cause of acute liver injury - CBC, CMP, PT/INR QAM - positive for Hepatitis A IgM antibodies per 02/11/24 blood draw; Hep A vaccination in 2022 (6) Lung consolidation: - CT AP showed tree in bud consolidation of right middle lobe, favoring infectious/inflammatory process - CT chest August 2022: Diffuse bronchial wall thickening, cluster ground glass nodule left lower lobe, bronchocentric groundglass airspace opacities scattered in R. lung, potentially sequela of prior COVID +/- superimposed new atypical infection - CT chest ordered: Several tree in bud nodules within right middle and right upper lobes, favoring an infectious process like bronchiolitis - Recommendation: repeat imaging in 3 months to ensure resolution - has been on isoniazid for <1 year per patient history, being held while we await viral hepatitis labs (7) COVID: - Patient reports he recently tested positive for COVID last week on 02/04 - COVID (+) on arrival - Isolation precautions for now - mild infrequent cough without sputum; no fever, myalgias, chest pain, wheeze, SOB - Supportive care, encourage hydration and food intake, ambulation Plan Disposition: Admit to [facility] Full code Regular diet VTE PPx: Low risk, encourage ambulation Total Time Total Time Spent Total Time Spent (In Minutes): I spent 15 minutes [id number] with the patient, 10 minutes reviewing data, and 15 minutes in documentation and coordination of care. Discharge Plan Discharge Items Patient Disposition: Home - Self-Care Reason For Visit: ELEVATED LFTS Discharge Diagnosis: elevated LFTs Activity: Per Instructions section Non-emergency contact: Primary Care Provider and Oncologist Call non-emergency contact if: you have any medication questions and your symptoms worsen Follow-up/Referrals: [facility] [Primary Care Provider] - (PLEASE FOLLOW UP WITH [facility] ) Diet: Regular Addtl Attending Provider Instructions: Edi, you were admitted to the hospital for elevated liver function tests in the setting of your history of bone marrow transplant and B cell ALL. During your workup, we ran tests for acute hepatitis which resulted positive for hepatitis A IgM which is typically seen with an acute or recent hepatitis A infection. Fortunately you are asymptomatic with this result, however we suspect this could be the explanation for your elevated liver function tests. Our gas pit worker had recommended a liver biopsy if your liver tests did not show any acute infection, but with this positive hepatitis A result we do not need to complete a biopsy at this time. We will recommend close follow up with your primary provider at [facility] for repeat blood work to continue to monitor you liver function tests. Acute hepatitis A infections do not require specific treatment and you only treat your symptoms (which fortunately you do not have). It is important to practice proper handwashing as this can be passed via fecal- oral route. Also do not share needles etc with other people, safe sex practices. While we are waiting for your liver function tests to return to normal, we will hold your Isoniazid as this medication can cause additional stress to your liver. We recommend you reach out to your oncologist and/or transplant infectious disease doctors in [place] to confirm the intended duration of treatment with the Isoniazid as it is not typical for a prophylactic medication unless there has been confirmed TB or TB exposure which you do not recall. Dr. Tomlinson will reach out to your oncologist and if we receive additional recommendations for your care after you are discharged, we will call you to notify you of this. Pending Studies at Discharge: No Stand-Alone Forms: My [facility], Smoking Cessation Medications and DC Order Prescriptions: Continued multivitamin Tablet 1 tab PO QAM Rx Instructions: gummies penicillin V potassium 250 mg Tablet 250 mg PO BID dextroamphetamine-amphetamine [Adderall] 15 mg Tablet 15 mg PO .Q AM AND BEFORE 2PM Rx Instructions: administer doses at least 4-6 hours apart deferasirox 360 mg Tablet 350 mg PO UD Rx Instructions: Per pt his dose is 350 mg and he takes 700 mg (350 x2) in the mornings take with water/beverage on empty stomach/w light meal (<7 % fat/<=250 any); do not take within 1 hr of an aluminum-containing antacid Vitamin B6 50 mcg PO DAILY acyclovir 1 tab PO BID Rx Instructions: dosage wasn't showing up for patient and he was unsure. Held isoniazid 300 mg Tablet 300 mg PO DAILY Hold Instructions: Resume on 03/14/24. Hold until instructed to resume by PCP Discharge Orders: Discharge Order (Routine); Ordered 02/15/24 Ordered By: Macy Willis/Other Patient Handouts: ALT, Hepatitis A (HAV) Infection Admission Data Admit Date/Time: 02/11/24 17:10 Attending Provider: Bernardo Marcial Admit Provider: Carlos Andrews Primary Care Provider: [place] Other Providers: Carlos Andrews; Magdi Sharp I Other Interventions: Discharge Summary Assessment (RN) Last Done: 02/15/24 11:10 Supervising Physician Co-Signing Physician Notes ATTESTATION I also saw the patient and confirmed parks portions of the history and exam. I agree with the impression and plan in the resident documentation, and as summarized below. No issues overnight. He feels well. He is actually looking forward to getting home; he just moved to the area and he is getting his furniture delivered today. He reports that his most recent HIV test was negative; this was actually done with the LFTs on 02/11/24 just prior to admission. He also had a negative HIV test back in December. EXAM 103/68, 66, 17, 36.7, 100% on room air Sclera nonicteric; No jaundice noted. He is pleasant and alert. No distress appreciated. Heart regular rate and rhythm. Respirations nonlabored. Abdomen soft and nontender. DATA Labs Hemoglobin 13.6 AST 389, ALT 749, alkaline phosphatase 405, total bilirubin 1.8 Hepatitis A IgM positive. IMPRESSION & PLAN Transaminitis Acute Hepatitis A Patient remains asymptomatic; LFTs with slight increase, slight increase in alkaline phosphatase, total bilirubin trending down. We discussed the possible etiologies: grafthost, side effect of isoniazid, acute hepatitis A. His hepatitis A IgM is positive, though it is noted that he had a single hep A vaccine in 2022; thus, this could represent acute infection despite vaccination or a false positive. In theory, Hep A viremia and transaminitis can precede clinical symptoms, so this may explain why he has none of the typical Hepatitis A symptoms such as nausea, vomiting, diarrhea, abdominal pain. He has had two negative HIV test in the past 2 months, and no known exposures or potential exposures in the interim. Given that he is feeling well and LFTs can be monitored as an outpatient, discussed the following plan for discharge: Will hold on isoniazid for time being; at least till his LFTs normalize. Would not start steroids at this point; will follow-up with the patient's transplant oncologist and if he feels indicated, can certainly send prescription following discharge He has a previously scheduled follow-up with [facility] on . The patient is aware he will need follow-up LFTs on , and then probably weekly thereafter. We carefully discussed the signs and symptoms for which she should monitor, including those symptoms for which he should call his PCP and those which she should present to the emergency department. The patient also sent information to his transplant oncologist through the patient portal in effort to coordinate care. Recent COVID Infection He describes having some mild fatigue which is the reason he took a home COVID test. Otherwise, no COVID-specific symptoms. This may explain the pulmonary abnormalities on the CT scan, however, he had similar appearing CT of chest and abdomen and pelvis dating back to 2020 (maybe longer, 2020 was as far as available outside records went back). While radiology recommended follow-up CT scan in 3 months to assure resolution, this may not be needed given prior CT demonstrating similar This decision can be made as an outpatient, and may be directed by clinical course as well. ALL S/P bone marrow transplant Additional per resident documentation Resident Activity Tracking Resident Involvement: Resident Care Provided Care Provided: Adult [facility]
[2024-02-15 07:37] VITALS: BP 103/68; PULSE 66; RESP 17
[2024-02-15 09:24] LABS: Basophils # (auto) 0.02 K/uL (0.00-0.20); Basophils % (auto) 0.4 %; Eosinophils # (auto) 0.03 K/uL (0.00-0.50); Eosinophils % (auto) 0.6 %; Hematocrit (blood only) 37.6 % (42.0-52.0); Hemoglobin 13.6 g/dl (14.0-18.0); Immature Granulocytes # (auto) 0.03 K/uL (0.01-0.20); Immature Granulocytes % (auto) 0.6 %; Lymphocytes # (auto) 1.65 K/uL (1.20-3.40); Lymphocytes % (auto) 33.8 %; Mean Corpuscular Hemoglobin 32.7 pg (25.0-34.0); Mean Corpuscular Hgb Conc 36.2 g/dL (32.0-36.0); Mean Corpuscular Volume 90.4 fL (80.0-100.0); Monocytes # (auto) 0.43 K/uL (0.11-0.59); Monocytes % (auto) 8.8 %; Neutrophils # (auto) 2.72 K/uL (1.40-6.50); Neutrophils % (auto) 55.8 %; Platelet Count 427 K/uL (130-400); RDW Coefficient of Variation 15.4 % (11.5-14.5); RDW Standard Deviation 51.1 fL (36.4-46.3); Red Blood Count 4.16 M/uL (4.70-6.10); White Blood Count 4.88 K/ul (4.8-10.8)
[2024-02-15 10:02] LABS: Albumin Level 3.5 gm/dl (3.4-5.0); Bilirubin Direct 1.2 mg/dl (0-0.2); Bilirubin,Total 1.8 mg/dl (0.2-1.0); Total Protein 8.3 gm/dl (6.0-8.3)
[2024-02-16 03:38] LABS: Babesia microti DNA Not Detected (Not Detected)
== END 2024-02-15 12:02 | disposition home or self-care (01) | DRG 441 ==
LOC: ED 12:42 → SUATTDRO 17:10 → 3E 17:10